=== PATIENT | male | born 1950 | race Caucasian/White ===

== ENCOUNTER 2018-07-27 12:08 | Observation (INO) | payer MEDICARE, OTHER ==
[2018-07-27] MEDS ORDERED: SODIUM CHLORIDE 0.9% 1,000 ML IV STA (13:13)
[2018-07-27] MEDS ORDERED: PANTOPRAZOLE 40 MG/10 ML VIAL IVP STA (13:13)
--- NOTE | 2018-07-27 13:16 | ED ---
General Adult HPI <SwapnilGiuseppe - Last Filed: 07/27/18 15:00> - General Source: family, RN notes reviewed Mode of arrival: ambulatory Limitations: no limitations <Faustino Mcneil - Last Filed: 07/27/18 15:03> - General Chief complaint: GI Bleed Stated complaint: Blood in stool Time Seen by Provider: 07/27/18 13:07 - History of Present Illness Initial comments: Patient 67-year-old male presented to the emergency room today with chief complaint of blood in his stool. Patient does admit that he had an episode of diarrhea last night. States he did not turn the light on its unsure if it was bloody. States this morning at a p.m. he had a bowel movement he wiped she noticed that it was bright red blood. He states he had a second bowel movement at 10 AM. He states it difficult family doctor advised coming here to the emergency room for further evaluation. Patient denies any other complaints or symptoms. He does admit that he is Xarelto and has a history of A. fib. Patient denies any recent fever, chills, shortness of breath, chest pain, back pain, abdominal pain, nausea or vomiting, headaches or visual changes, or any other complaints. (Faustino Mcneil) - Related Data Home Medications Medication Instructions Recorded Confirmed Digoxin [Lanoxin] 250 mcg PO DAILY@199902/17/14 07/27/18 Loratadine [Claritin] 10 mg PO DAILY@199902/17/14 07/27/18 Multivitamin [Men's Multi-Vitamin] 1 tab PO DAILY@199902/17/14 07/27/18 Rivaroxaban [Xarelto] 20 mg PO DAILY@199902/17/14 07/27/18 Tamsulosin [Flomax] 0.8 mg PO DAILY@199902/17/14 07/27/18 Cholecalciferol [Vitamin D3] 5,000 unit PO DAILY@199901/20/17 07/27/18 Krill/Om-3/Dha/Epa/Phospho/Ast 1 cap PO DAILY@199901/20/17 07/27/18 [[place]-3 Krill Oil 300 mg Sfgl] Atenolol [Tenormin] 25 mg PO DAILY@199907/27/18 07/27/18 Finasteride [Proscar] 5 mg PO DAILY@199907/27/18 07/27/18 Allergies Allergy/AdvReac Type Severity Reaction Status Date / Time No Known Allergies Allergy Verified 07/27/18 13:20 Review of Systems ROS Other: All systems not noted in ROS Statement are negative. <Giuseppe Kraft - Last Filed: 07/27/18 15:00> ROS Other: All systems not noted in ROS Statement are negative. <Faustino Mcneil - Last Filed: 07/27/18 15:03> ROS Statement: Those systems with pertinent positive or pertinent negative responses have been documented in the HPI. Past Medical History Past Medical History: Atrial Fibrillation, Hyperlipidemia, Hypertension, Myocardial Infarction ([place]), Osteoarthritis (OA), Prostate Disorder, Skin Disorder, Sleep Apnea/CPAP/BIPAP Additional Past Medical History / Comment(s): uses CPAP, psoriasis, hx. colon polyps Last Myocardial Infarction Date:: 2007 History of Any Multi-Drug Resistant Organisms: None Reported Past Surgical History: Hernia Repair, Tonsillectomy Additional Past Surgical History / Comment(s): colonoscopy Past Anesthesia/Blood Transfusion Reactions: No Reported Reaction Past Psychological History: No Psychological Hx Reported Smoking Status: Former smoker Past Alcohol Use History: None Reported Past Drug Use History: None Reported - Past Family History Mother Family Medical History: Cancer <Faustino Mcneil - Last Filed: 07/27/18 15:03> General Exam <Giuseppe Kraft - Last Filed: 07/27/18 15:00> Limitations: no limitations <McneilFaustino - Last Filed: 07/27/18 15:03> - General Exam Comments Initial Comments: General: The patient is awake and alert, in no distress, and does not appear acutely ill. Eye: Pupils are equal, round and reactive to light. Extra-ocular movements are intact. No nystagmus. There is normal conjunctiva bilaterally. No signs of icterus. Ears, nose, mouth and throat: There are moist mucous membranes and no oral lesions. Neck: The neck is supple, there is no tenderness or JVD. Cardiovascular: There is a regular rate and rhythm. No murmur, rub or gallop is appreciated. Respiratory: Lungs are clear to auscultation, respirations are non-labored, breath sounds are equal. No wheezes, stridor, rales, or rhonchi. Gastrointestinal: Soft, non-distended, non-tender abdomen without masses or organomegaly noted. There is no rebound or guarding present. No CVA tenderness. Musculoskeletal: Normal ROM, no tenderness. Sensation intact. Strength 5/5. Pulses equal bilaterally 2+. Neurological: A&O x 3. CN II-XII intact, There are no obvious motor or sensory deficits. Coordination appears grossly intact. Speech is normal. Skin: Skin is warm and dry and no rashes or lesions are noted. Psychiatric: Cooperative, appropriate mood & affect, normal judgment. : Normal rectal tone. No bright red blood per rectum. Guaiac positive. ( Faustino Mcneil) Vital Signs 07/27/18 07/27/18 12:09 14:05 Temperature 98.2 F Pulse Rate 93 76 Respiratory 18 18 Rate Blood Pressure 126/79 112/71 O2 Sat by Pulse 98 96 Oximetry Medical Decision Making - Lab Data Result diagrams: 07/27/18 13:30 07/27/18 13:30 <Giuseppe Kraft - Last Filed: 07/27/18 15:00> - Lab Data Result diagrams: 07/27/18 13:30 07/27/18 13:30 <Faustino Mcneil - Last Filed: 07/27/18 15:03> - Medical Decision Making Patient reevaluated by myself, Dr. Kraft. Patient resting comfortably in bed. Abdomen soft and nontender. Patient and family updated on results and plan. Case was discussed in detail with Dr. Fitch, who will admit for Dr. gonzalez. He does agree with discontinuing Xarelto and GI consult. (Giuseppe Kraft) Patient reexamined at this time shows no signs of distress. Resting comfortably. Patient's labs been reviewed. Patient's Hemoccult positive here the emergency room. There is no bright red blood per rectum. Patient's vitals are stable. Patient was given dose of Protonix here the emergency room. Patient will be admitted for serial H&H and consult to GI. (Faustino Mcneil) - Lab Data Lab Results 07/27/18 07/27/18 07/27/18 Range/Units 13:30 13:30 13:30 WBC 10.0 (3.8-10.6) k/uL RBC 4.66 (4.30-5.90) m/uL Hgb 14.2 (13.0-17.5) gm/dL Hct 43.8 (39.0-53.0) % MCV 93.9 (80.0-100.0) fL MCH 30.4 (25.0-35.0) pg MCHC 32.4 (31.0-37.0) g/dL RDW 13.6 (11.5-15.5) % Plt Count 225 (150-450) k/uL Neutrophils % 68 % Lymphocytes % 22 % Monocytes % 6 % Eosinophils % 1 % Basophils % 0 % Neutrophils # 6.8 (1.3-7.7) k/uL Lymphocytes # 2.2 (1.0-4.8) k/uL Monocytes # 0.6 (0-1.0) k/uL Eosinophils # 0.1 (0-0.7) k/uL Basophils # 0.0 (0-0.2) k/uL PT 11.0 (9.0-12.0) sec INR 1.1 (<1.2) APTT 37.6 H (22.0-30.0) sec Sodium 141 (137-145) mmol/L Potassium 4.5 (3.5-5.1) mmol/L Chloride 103 (98-107) mmol/L Carbon Dioxide 26 (22-30) mmol/L Anion Gap 12 mmol/L BUN 17 (9-20) mg/dL Creatinine 0.67 (0.66-1.25) mg/dL Est GFR (CKD-EPI)AfAm >90 (>60 ml/min/1.73 sqM) Est GFR (CKD-EPI)NonAf >90 (>60 ml/min/1.73 sqM) Glucose 95 (74-99) mg/dL Calcium 9.1 (8.4-10.2) mg/dL Total Bilirubin 0.6 (0.2-1.3) mg/dL AST 27 (17-59) U/L ALT 21 (21-72) U/L Alkaline Phosphatase 52 (38-126) U/L Troponin I (0.000-0.034) ng/mL Total Protein 7.3 (6.3-8.2) g/dL Albumin 4.1 (3.5-5.0) g/dL 07/27/18 Range/Units 13:30 WBC (3.8-10.6) k/uL RBC (4.30-5.90) m/uL Hgb (13.0-17.5) gm/dL Hct (39.0-53.0) % MCV (80.0-100.0) fL MCH (25.0-35.0) pg MCHC (31.0-37.0) g/dL RDW (11.5-15.5) % Plt Count (150-450) k/uL Neutrophils % % Lymphocytes % % Monocytes % % Eosinophils % % Basophils % % Neutrophils # (1.3-7.7) k/uL Lymphocytes # (1.0-4.8) k/uL Monocytes # (0-1.0) k/uL Eosinophils # (0-0.7) k/uL Basophils # (0-0.2) k/uL PT (9.0-12.0) sec INR (<1.2) APTT (22.0-30.0) sec Sodium (137-145) mmol/L Potassium (3.5-5.1) mmol/L Chloride (98-107) mmol/L Carbon Dioxide (22-30) mmol/L Anion Gap mmol/L BUN (9-20) mg/dL Creatinine (0.66-1.25) mg/dL Est GFR (CKD-EPI)AfAm (>60 ml/min/1.73 sqM) Est GFR (CKD-EPI)NonAf (>60 ml/min/1.73 sqM) Glucose (74-99) mg/dL Calcium (8.4-10.2) mg/dL Total Bilirubin (0.2-1.3) mg/dL AST (17-59) U/L ALT (21-72) U/L Alkaline Phosphatase (38-126) U/L Troponin I <0.012 (0.000-0.034) ng/mL Total Protein (6.3-8.2) g/dL Albumin (3.5-5.0) g/dL Disposition <Giuseppe Kraft - Last Filed: 07/27/18 15:00> Is patient prescribed a controlled substance at d/c from ED?: No Time of Disposition: 15:03 <Faustino Mcneil - Last Filed: 07/27/18 15:03> Clinical Impression: GI bleed, Occult blood positive stool Disposition: ADMITTED IP TO THIS HOSP Condition: Good Referrals: Shruti Kurtz MD [Primary Care Provider] - 1-2 days
[2018-07-27 13:45] LABS: Basophils % (A) 0 %; Eosinophils # (A) 0.1 k/uL (0-0.7); Eosinophils % (A) 1 %; HCT 43.8 % (39.0-53.0); HGB 14.2 gm/dL (13.0-17.5); Lymphocytes # (A) 2.2 k/uL (1.0-4.8); Lymphocytes % (A) 22 %; MCH 30.4 pg (25.0-35.0); MCHC 32.4 g/dL (31.0-37.0); MCV 93.9 fL (80.0-100.0); Monocytes # (A) 0.6 k/uL (0-1.0); Monocytes % (A) 6 %; Neutrophils # (A) 6.8 k/uL (1.3-7.7); Neutrophils % (A) 68 %; Platelet Count 225 k/uL (150-450); RBC 4.66 m/uL (4.30-5.90); RDW 13.6 % (11.5-15.5)
[2018-07-27 13:50] LABS: INR 1.1 (<1.2); Partial Thromboplastin Time 37.6 sec (22.0-30.0)
[2018-07-27 13:56] LABS: ALT 21 U/L (21-72); AST 27 U/L (17-59); Albumin 4.1 g/dL (3.5-5.0); Alkaline Phosphatase 52 U/L (38-126); Anion Gap 12 mmol/L; Blood Urea Nitrogen 17 mg/dL (9-20); Calcium 9.1 mg/dL (8.4-10.2); Carbon Dioxide 26 mmol/L (22-30); Chloride 103 mmol/L (98-107); Glucose 95 mg/dL (74-99); Potassium 4.5 mmol/L (3.5-5.1); Sodium 141 mmol/L (137-145); Total Bilirubin 0.6 mg/dL (0.2-1.3); Total Protein 7.3 g/dL (6.3-8.2)
[2018-07-27] MEDS ORDERED: NALOXONE 0.4 MG/ML 1 ML VIAL IV PRN (15:01)
--- NOTE | 2018-07-27 16:00 | P.HPIM ---
History of Present Illness H&P Date: 07/27/18 Chief Complaint: GI bleed This is a 67-year-old male patient of Dr. montero. Patient presents to the emergency room with complaints of a GI bleed. Patient states that this morning he went to the bathroom and noticed bright red blood with his bowel movement. Patient said he had 2 episodes of this at home. Patient proceeded to PCP where he was sent to the emergency room. Patient is currently on xarelato for atrial fibrillation. Additional medical history includes lipidemia, hypertension, myocardial infarction, osteoarthritis, prostate disorder comes skin disorder and sleep apnea. Patient did have colonoscopy in January 2017 in which showed multiple small polyps. Patient denies any alcohol use. Patient denies any change to diet. Patient denies any nausea vomiting. Patient denies any abdominal pain or cramping. Patient's hemoglobin stable at 14.2. GI services have been consulted. EKG has been ordered due to history of atrial fibrillation along with cardiac monitoring. Patient denies chest pain or shortness of breath. Patient denies any urinary burning or frequency. Review of Systems Please refer to HPI otherwise unremarkable Past Medical History Past Medical History: Atrial Fibrillation, Hyperlipidemia, Hypertension, Myocardial Infarction ([place]), Osteoarthritis ([place]), Prostate Disorder, Skin Disorder, Sleep Apnea/CPAP/BIPAP Additional Past Medical History / Comment(s): uses CPAP, psoriasis, hx. colon polyps Last Myocardial Infarction Date:: 2007 History of Any Multi-Drug Resistant Organisms: None Reported Past Surgical History: Hernia Repair, Tonsillectomy Additional Past Surgical History / Comment(s): colonoscopy Past Anesthesia/Blood Transfusion Reactions: No Reported Reaction Past Psychological History: No Psychological Hx Reported Smoking Status: Former smoker Past Alcohol Use History: None Reported Past Drug Use History: None Reported - Past Family History Mother Family Medical History: Cancer Medications and Allergies Home Medications Medication Instructions Recorded Confirmed Type Digoxin [Lanoxin] 250 mcg PO DAILY@199902/17/14 07/27/18 History Loratadine [Claritin] 10 mg PO DAILY@199902/17/14 07/27/18 History Multivitamin [Men's Multi-Vitamin] 1 tab PO DAILY@199902/17/14 07/27/18 History Rivaroxaban [Xarelto] 20 mg PO DAILY@199902/17/14 07/27/18 History Tamsulosin [Flomax] 0.8 mg PO DAILY@199902/17/14 07/27/18 History Cholecalciferol [Vitamin D3] 5,000 unit PO DAILY@199901/20/17 07/27/18 History Krill/Om-3/Dha/Epa/Phospho/Ast 1 cap PO DAILY@199901/20/17 07/27/18 History [[place]-3 Krill Oil 300 mg Sfgl] Atenolol [Tenormin] 25 mg PO DAILY@199907/27/18 07/27/18 History Finasteride [Proscar] 5 mg PO DAILY@199907/27/18 07/27/18 History Allergies Allergy/AdvReac Type Severity Reaction Status Date / Time No Known Allergies Allergy Verified 07/27/18 13:20 Physical Exam Vitals: Vital Signs Temp Pulse Resp BP Pulse Ox 07/27/18 14:05 76 18 112/71 96 07/27/18 12:09 98.2 F 93 18 126/79 98 Intake and Output 07/27/18 07/27/18 07/27/18 06:59 14:59 22:59 Other: Weight 135.624 kg Head normocephalic Neck supple Lungs clear to auscultation bilaterally no wheezing or crackles Heart regular rate and rhythm S1-S2, no rub or gallop Abdomen is soft nontender nondistended positive bowel sounds no hepatosplenomegaly Extremities no edema Neuro alert and orientated to 3 Results CBC & Chem 7: 07/27/18 13:30 07/27/18 13:30 Labs: Abnormal Lab Results - Last 24 Hours (Table) 07/27/18 Range/Units 13:30 APTT 37.6 H (22.0-30.0) sec Assessment and Plan Assessment: 1. GI bleed. Patient started on Protonix. GI services have been consulted. patient did have colonoscopy in January 2017 showing polyps. 2. History of atrial fibrillation. Patient is on Xarelto. Xarelto currently on hold due to episode GI bleed. EKG and cardiac monitoring has been ordered. Dig level ordered. Home digoxin resumed 3. History of hyperlipidemia 4. History of essential hypertension. Home medications resumed 5. History of osteoarthritis 6. History of myocardial infarction 7. History of prostate disorder 8. History of sleep apnea. Patient does use home CPAP machine DVT prophylaxis SCDs. GI prophylaxis Protonix Time with Patient: Greater than 30 (Greater than 60% of the total time spent in counseling and coordination of care. I performed an examination of the patient and discussed their management with the Nurse Practitioner. I have reviewed the Nurse Practitioner's notes and agree with the documented findings and plan of care)
[2018-07-27] MEDS ORDERED: NON-FORMULARY DRUG (Krill/Om-3/Dha/Epa/Phospho/Ast [Omega-3 Krill Oil 300 Mg Sfgl] 1 CAP) PO SCH (20:00)
[2018-07-27] MEDS: CHOLECALCIFEROL 1,000 UNIT TAB PO SCH (22:10)
[2018-07-27] MEDS: ATENOLOL 25 MG TAB PO SCH (22:10)
[2018-07-27] MEDS: MULTIVITAMINS, THERA 1 EACH TAB PO SCH (22:11)
[2018-07-27] MEDS: DIGOXIN 250 MCG TAB PO SCH (22:11)
[2018-07-27] MEDS: LORATADINE 10 MG TAB PO SCH (22:11)
[2018-07-27] MEDS: TAMSULOSIN 0.4 MG CAP.ER.24H PO SCH (22:11)
[2018-07-27] MEDS: FINASTERIDE 5 MG TAB PO SCH (22:11)
--- NOTE | 2018-07-28 09:41 | P.PN ---
Subjective Progress Note Date: 07/28/18 This is a 67-year-old male patient of Dr. montero. Patient presents to the emergency room with complaints of a GI bleed. Patient states that this morning he went to the bathroom and noticed bright red blood with his bowel movement. Patient said he had 2 episodes of this at home. Patient proceeded to PCP where he was sent to the emergency room. Patient is currently on xarelato for atrial fibrillation. Additional medical history includes lipidemia, hypertension, myocardial infarction, osteoarthritis, prostate disorder comes skin disorder and sleep apnea. Patient did have colonoscopy in January 2017 in which showed multiple small polyps. Patient denies any alcohol use. Patient denies any change to diet. Patient denies any nausea vomiting. Patient denies any abdominal pain or cramping. Patient's hemoglobin stable at 14.2. GI services have been consulted. EKG has been ordered due to history of atrial fibrillation along with cardiac monitoring. Patient denies chest pain or shortness of breath. Patient denies any urinary burning or frequency. On 07/28/2018 patient is currently alert and oriented 3 resting comfortably in bed. Patient denies any further bleeding at this time. Patient has not had a bowel movement since arrival to the emergency room. Patient denies chest pain or shortness of breath. Patient denies nausea vomiting or diarrhea. Patient denies any urinary burning or frequency. Awaiting GI consult Objective - Vital Signs Vital signs: Vital Signs Temp 98.4 F 07/28/18 06:02 Pulse 93 07/28/18 06:02 Resp 18 07/28/18 06:02 BP 118/64 07/28/18 06:02 Pulse Ox 97 07/28/18 06:02 Intake & Output 07/27/18 07/28/18 07/28/18 18:59 06:59 18:59 Weight 135.624 kg Other: Voiding Method Toilet # Voids 1 - Exam Head normocephalic Neck supple Lungs clear to auscultation bilaterally no wheezing or crackles Heart regular rate and rhythm S1-S2, no rub or gallop Abdomen is soft nontender nondistended positive bowel sounds no hepatosplenomegaly Extremities no edema Neuro alert and orientated to 3 - Labs CBC & Chem 7: 07/27/18 13:30 07/27/18 13:30 Labs: Abnormal Lab Results - Last 24 Hours (Table) 07/27/18 Range/Units 13:30 APTT 37.6 H (22.0-30.0) sec Assessment and Plan Assessment: 1. GI bleed. Patient started on Protonix. GI services have been consulted. patient did have colonoscopy in January 2017 showing polyps. 2. History of atrial fibrillation. Patient is on Xarelto. Xarelto currently on hold due to episode GI bleed. EKG and cardiac monitoring has been ordered. Dig level ordered. Home digoxin resumed 3. History of hyperlipidemia 4. History of essential hypertension. Home medications resumed 5. History of osteoarthritis 6. History of myocardial infarction 7. History of prostate disorder 8. History of sleep apnea. Patient does use home CPAP machine DVT prophylaxis SCDs. GI prophylaxis Protonix
[2018-07-28 09:50] LABS: Basophils % (A) 0 %; Eosinophils # (A) 0.2 k/uL (0-0.7); Eosinophils % (A) 2 %; HCT 42.2 % (39.0-53.0); HGB 13.9 gm/dL (13.0-17.5); Lymphocytes # (A) 2.3 k/uL (1.0-4.8); Lymphocytes % (A) 23 %; MCH 31.3 pg (25.0-35.0); MCHC 33.1 g/dL (31.0-37.0); MCV 94.8 fL (80.0-100.0); Monocytes # (A) 0.6 k/uL (0-1.0); Monocytes % (A) 6 %; Neutrophils # (A) 6.6 k/uL (1.3-7.7); Neutrophils % (A) 66 %; Platelet Count 219 k/uL (150-450); RBC 4.45 m/uL (4.30-5.90); RDW 13.7 % (11.5-15.5)
[2018-07-28] MEDS: PANTOPRAZOLE 40 MG/10 ML VIAL IV SCH (09:51)
[2018-07-28 10:08] LABS: ALT 25 U/L (21-72); AST 26 U/L (17-59); Albumin 3.9 g/dL (3.5-5.0); Alkaline Phosphatase 51 U/L (38-126); Anion Gap 12 mmol/L; Blood Urea Nitrogen 13 mg/dL (9-20); Carbon Dioxide 26 mmol/L (22-30); Chloride 102 mmol/L (98-107); Glucose 114 mg/dL (74-99); Potassium 4.4 mmol/L (3.5-5.1); Sodium 140 mmol/L (137-145); Total Bilirubin 0.6 mg/dL (0.2-1.3); Total Protein 6.8 g/dL (6.3-8.2)
--- NOTE | 2018-07-28 12:57 | P.CONS ---
History of Present Illness - Reason for Consult Consult date: 07/28/18 Rectal bleeding Requesting physician: Shavon Fitch - Chief Complaint Rectal bleeding - History of Present Illness 67-year-old gentleman patient of Dr. Kurtz with a past medical history of morbid obesity, atrial fibrillation maintained on Xarelto, hyperlipidemia, hypertension, [place] and sleep apnea. Patient presents with bright red blood per rectum 1 day. He had 2 episodes yesterday relatively painless. Patient states 2 weeks ago he had an episode of severe constipation took over-the- counter laxatives with improvement. He has no history of GI bleeds. Colonoscopy January 2017 reported no evidence of diverticulosis. Cecal polypectomy 5 and hepatic flexure polypectomy 1 biopsies consistent with fragments of adenoma. Patient past a bowel movement this morning that was slightly blood-tinged improved from yesterday. Admission 14.2 presently 13.9. INR 1.1. BUN 17. Creatinine 0.6. FOBT positive. Review of Systems Constitutional: Denies fever, chills, sweats, weight gain, or loss. HEENT: Negative for migraines, blurred vision or loss, earaches, drainage, tinnitus, oral mucosal lesions, dysphagia, or odynophagia. Cardiac: Negative for chest pain, arrhythmias, or palpitation. Respiratory: Negative for shortness of breath, hemoptysis, cough, or sputum production. Gastrointestinal: See HPI for pertinent findings. Genitourinary: Negative for hematuria, urgency, frequency, polyuria, dysuria, or penile discharge. Musculoskeletal: Negative for muscle aches, swelling, arthritis, and arthralgias. Neurologic: Negative for stroke or TIA. Endocrine: Negative for thyroid problems. Skin: Negative for rash or itching. Psychiatric: Negative history for depression and anxiety Past Medical History Past Medical History: Atrial Fibrillation, Hyperlipidemia, Hypertension, Myocardial Infarction ([place]), Osteoarthritis ([place]), Prostate Disorder, Skin Disorder, Sleep Apnea/CPAP/BIPAP Additional Past Medical History / Comment(s): uses CPAP, psoriasis, hx. colon polyps-benign, past uti-ecoli 2014 Last Myocardial Infarction Date:: 2007 History of Any Multi-Drug Resistant Organisms: None Reported Past Surgical History: Heart Catheterization, Hernia Repair, Tonsillectomy Additional Past Surgical History / Comment(s): colonoscopy/polypectomy Past Anesthesia/Blood Transfusion Reactions: No Reported Reaction Smoking Status: Former smoker - Past Family History Mother Family Medical History: Cancer Additional Family Medical History / Comment(s): "female cancer" Father Family Medical History: Cancer Additional Family Medical History / Comment(s): brain tumor and lung cancer Medications and Allergies Home Medications Medication Instructions Recorded Confirmed Type Digoxin [Lanoxin] 250 mcg PO DAILY@199902/17/14 07/27/18 History Loratadine [Claritin] 10 mg PO DAILY@199902/17/14 07/27/18 History Multivitamin [Men's Multi-Vitamin] 1 tab PO DAILY@199902/17/14 07/27/18 History Rivaroxaban [Xarelto] 20 mg PO DAILY@199902/17/14 07/27/18 History Tamsulosin [Flomax] 0.8 mg PO DAILY@199902/17/14 07/27/18 History Cholecalciferol [Vitamin D3] 5,000 unit PO DAILY@199901/20/17 07/27/18 History Krill/Om-3/Dha/Epa/Phospho/Ast 1 cap PO DAILY@199901/20/17 07/27/18 History [[place]-3 Krill Oil 300 mg Sfgl] Atenolol [Tenormin] 25 mg PO DAILY@199907/27/18 07/27/18 History Finasteride [Proscar] 5 mg PO DAILY@199907/27/18 07/27/18 History Allergies Allergy/AdvReac Type Severity Reaction Status Date / Time No Known Allergies Allergy Verified 07/27/18 13:20 Physical Exam Vitals: Vital Signs Temp Pulse Pulse Resp BP BP Pulse Ox 07/28/18 09:57 93 18 07/28/18 06:02 98.4 F 93 18 118/64 97 07/27/18 23:00 98.1 F 97 18 134/83 96 07/27/18 17:30 97.0 F L 85 18 139/76 97 07/27/18 17:06 98.2 F 82 18 131/85 100 07/27/18 16:38 82 18 131/85 100 07/27/18 14:05 76 18 112/71 96 Intake and Output 07/27/18 07/28/18 07/28/18 22:59 06:59 14:59 Intake Total 350 Balance 350 Intake: Oral 350 Other: Voiding Method Toilet Toilet # Voids 1 1 General appearance: The patient is alert, oriented, in no acute distress. HET: Head is normocephalic and atraumatic. Pupils are equal and reactive. Oropharynx is clear without lesions. Neck: Supple without lymphadenopathy. Trachea midline. Heart: S1 S2. Regular rate and rhythm. Lungs: No crackles or wheezes are heard. Abdomen: Soft, nontender, nondistended with bowel sounds. No peritoneal signs. No palpable organomegaly or masses. Extremities: Normal skin color and turgor. No cyanosis, rash, ulceration, clubbing, or edema. Radial and pedal pulses are 2/4 bilaterally. Neurological: No focal deficits. Strength and sensation are grossly intact. Results CBC & Chem 7: 07/28/18 09:24 07/28/18 09:24 Labs: Abnormal Lab Results - Last 24 Hours (Table) 07/27/18 07/28/18 Range/Units 13:30 09:24 APTT 37.6 H (22.0-30.0) sec Glucose 114 H (74-99) mg/dL Assessment and Plan (1) Rectal bleeding Narrative/Plan: 67-year-old male admitted with a one-day history of painless bloody diarrhea with episode of constipation less than 2 weeks ago underlying history of atrial fibrillation maintained on anticoagulation. Possible focal area of colitis possible proctitis stercoral ulcer, anal fissure also within the differential with reported history of profound constipation less than 2 weeks ago exacerbated by anti-coagulation. Colonoscopy January 2017 cecal polypectomy 5, transverse polypectomy 1 biopsies consistent with adenoma. Rectal bleeding appears to be improving hemoglobin stable at 13.9. Current Visit: Yes Status: Acute Code(s): K62.5 - HEMORRHAGE OF ANUS AND RECTUM SNOMED Code(s): 68678833 (2) Atrial fibrillation Current Visit: Yes Status: Acute Code(s): I48.91 - UNSPECIFIED ATRIAL FIBRILLATION SNOMED Code(s): 57130179 (3) Morbid obesity with BMI of 40.0-44.9, adult Current Visit: Yes Status: Chronic Code(s): E66.01 - MORBID (SEVERE) OBESITY DUE TO EXCESS CALORIES; Z68.41 - BODY MASS INDEX (BMI) 40.0-44.9, ADULT SNOMED Code(s): 788811485 Plan: 1. Advise liquid diet. CBC monitoring and observe. Inpatient endoscopic exams not planned at this time but contingent on clinical course. Continue to hold anticoagulation. We'll follow closely with you. Thank you for this kind referral and the opportunity to participate in the care of your patient. This consultation was discussed with Dr. Flores. The impression and plan of care have been directed as dictated.
[2018-07-28] MEDS: ATENOLOL 25 MG TAB PO SCH (20:05)
[2018-07-28] MEDS: FINASTERIDE 5 MG TAB PO SCH (20:06)
[2018-07-28] MEDS: CHOLECALCIFEROL 1,000 UNIT TAB PO SCH (20:06)
[2018-07-28] MEDS: LORATADINE 10 MG TAB PO SCH (20:06)
[2018-07-28] MEDS: MULTIVITAMINS, THERA 1 EACH TAB PO SCH (20:06)
[2018-07-28] MEDS: DIGOXIN 250 MCG TAB PO SCH (20:06)
[2018-07-28] MEDS: TAMSULOSIN 0.4 MG CAP.ER.24H PO SCH (20:06)
[2018-07-28 23:10] VITALS: RESP 18
[2018-07-29 05:58] VITALS: BP 115/81; PULSE 91; TEMP 97.6
[2018-07-29] MEDS: PANTOPRAZOLE 40 MG/10 ML VIAL IV SCH (08:21)
--- NOTE | 2018-07-29 10:27 | P.PN ---
Subjective Progress Note Date: 07/29/18 Principal diagnosis: Rectal bleeding Feels well. Denies abdominal pain. Tolerating full liquids. CBC pending. BM last night described as soft with older dark appearing blood. Objective - Vital Signs Vital signs: Vital Signs Temp 97.6 F 07/29/18 05:57 Pulse 91 07/29/18 05:57 Resp 18 07/29/18 05:57 BP 115/81 07/29/18 05:57 Pulse Ox 95 07/29/18 05:57 Intake & Output 07/28/18 07/29/18 07/29/18 18:59 06:59 18:59 Intake Total 1150 Balance 1150 Weight 135.624 kg Intake: Oral 1150 Other: Voiding Method Toilet Toilet # Voids 2 1 # Bowel Movements 1 - Exam General appearance: The patient is alert, oriented, in no acute distress. HET: Head is normocephalic and atraumatic. Pupils are equal and reactive. Oropharynx is clear without lesions. Neck: Supple without lymphadenopathy. Trachea midline. Heart: S1 S2. Regular rate and rhythm. Lungs: No crackles or wheezes are heard. Abdomen: Soft, nontender, nondistended with bowel sounds. No peritoneal signs. No palpable organomegaly or masses. Extremities: Normal skin color and turgor. No cyanosis, rash, ulceration, clubbing, or edema. Radial and pedal pulses are 2/4 bilaterally. Neurological: No focal deficits. Strength and sensation are grossly intact. - Labs CBC & Chem 7: 07/28/18 09:24 07/28/18 09:24 Assessment and Plan (1) Rectal bleeding Narrative/Plan: 67-year-old male admitted with a one-day history of painless bloody diarrhea with episode of constipation less than 2 weeks ago underlying history of atrial fibrillation maintained on anticoagulation. Possible focal area of colitis possible proctitis stercoral ulcer, anal fissure also within the differential with reported history of profound constipation less than 2 weeks ago exacerbated by anti-coagulation. Colonoscopy January 2017 cecal polypectomy 5, transverse polypectomy 1 biopsies consistent with adenoma. Rectal bleeding appears to be improving hemoglobin stable at 13.9. Current Visit: Yes Status: Acute Code(s): K62.5 - HEMORRHAGE OF ANUS AND RECTUM SNOMED Code(s): 88193833 (2) Atrial fibrillation Current Visit: Yes Status: Acute Code(s): I48.91 - UNSPECIFIED ATRIAL FIBRILLATION SNOMED Code(s): 36739252 (3) Morbid obesity with BMI of 40.0-44.9, adult Current Visit: Yes Status: Chronic Code(s): E66.01 - MORBID (SEVERE) OBESITY DUE TO EXCESS CALORIES; Z68.41 - BODY MASS INDEX (BMI) 40.0-44.9, ADULT SNOMED Code(s): 375942822 Plan: 1. Low residue diet. Daily stool softeners to avoid constipation. If CBC is stable agreeable for discharge today return to office in 10 days. Inpatient endoscopic exams not planned at this time. Agreeable to resume anticoagulation per medicine's discretion. Assessment and plan a care discussed with Dr. Flores
[2018-07-29 11:54] LABS: Basophils % (A) 0 %; Eosinophils # (A) 0.1 k/uL (0-0.7); Eosinophils % (A) 1 %; HCT 41.2 % (39.0-53.0); HGB 13.5 gm/dL (13.0-17.5); Lymphocytes # (A) 1.8 k/uL (1.0-4.8); Lymphocytes % (A) 22 %; MCHC 32.8 g/dL (31.0-37.0); MCV 94.5 fL (80.0-100.0); Mean Platelet Volume 7.5; Monocytes # (A) 0.7 k/uL (0-1.0); Monocytes % (A) 8 %; Neutrophils # (A) 5.3 k/uL (1.3-7.7); Neutrophils % (A) 65 %; Platelet Count 202 k/uL (150-450); RBC 4.36 m/uL (4.30-5.90); RDW 13.8 % (11.5-15.5); WBC 8.2 k/uL (3.8-10.6)
[2018-07-29 12:05] LABS: ALT 23 U/L (21-72); AST 25 U/L (17-59); Albumin 3.8 g/dL (3.5-5.0); Alkaline Phosphatase 46 U/L (38-126); Anion Gap 10 mmol/L; Blood Urea Nitrogen 12 mg/dL (9-20); Calcium 9.2 mg/dL (8.4-10.2); Carbon Dioxide 28 mmol/L (22-30); Chloride 102 mmol/L (98-107); Glucose 103 mg/dL (74-99); Potassium 4.3 mmol/L (3.5-5.1); Sodium 140 mmol/L (137-145); Total Bilirubin 0.5 mg/dL (0.2-1.3); Total Protein 6.9 g/dL (6.3-8.2)
--- NOTE | 2018-07-29 13:35 | P.DS ---
Providers Date of admission: 07/27/18 15:01 Expected date of discharge: 07/29/18 Attending physician: Shavon Fitch Consults: 07/27/18 15:01 Consult Physician ONCE Consulting Provider: Codie Flores Consult Reason/Comments: gi bleed Do you want consulting provider notified?: Yes Primary care physician: Shruti Kurtz Hospital Course: Discharge diagnosis 1. GI bleed. Patient started on Protonix. GI services have been consulted. patient did have colonoscopy in January 2017 showing polyps. Patient did have a BM last night described as soft with old dark appearing Blood. CBC remained stable. Per his GI service is patient to be discharged home and follow up outpatient in 10 days. Discussed case with Catina Singh per GI services okay for patient to resume xarelto tomorrow. If patient continues to have an episode of bleeding after restarting blood thinner patient most likely have to undergo colonoscopy or EGD scopes 2. History of atrial fibrillation. Patient is on Xarelto. Xarelto currently on hold due to episode GI bleed. EKG and cardiac monitoring has been ordered. Dig level ordered. Home digoxin resumed. okay to resume Xarelto per GI services 3. History of hyperlipidemia 4. History of essential hypertension. Home medications resumed 5. History of osteoarthritis 6. History of myocardial infarction 7. History of prostate disorder 8. History of sleep apnea. Patient does use home CPAP machine Hospital Course This is a 67-year-old male patient of Dr. kurtz. Patient presents to the emergency room with complaints of a GI bleed. Patient states that this morning he went to the bathroom and noticed bright red blood with his bowel movement. Patient said he had 2 episodes of this at home. Patient proceeded to PCP where he was sent to the emergency room. Patient is currently on xarelato for atrial fibrillation. Additional medical history includes lipidemia, hypertension, myocardial infarction, osteoarthritis, prostate disorder comes skin disorder and sleep apnea. Patient did have colonoscopy in January 2017 in which showed multiple small polyps. Patient denies any alcohol use. Patient denies any change to diet. Patient denies any nausea vomiting. Patient denies any abdominal pain or cramping. Patient's hemoglobin stable at 14.2. GI services have been consulted. EKG has been ordered due to history of atrial fibrillation along with cardiac monitoring. Patient denies chest pain or shortness of breath. Patient denies any urinary burning or frequency. On 07/28/2018 patient is currently alert and oriented 3 resting comfortably in bed. Patient denies any further bleeding at this time. Patient has not had a bowel movement since arrival to the emergency room. Patient denies chest pain or shortness of breath. Patient denies nausea vomiting or diarrhea. Patient denies any urinary burning or frequency. Awaiting GI consult On 08/08/2018 patient is currently alert and oriented 3. Patient did state he had BM last night that did have some dark old appearing blood. Hemoglobin remained stable at 13.5. Discussed case with Catina Singh per GI services okay to resume Xarelto starting tomorrow. CBC has been ordered for 2 days. Patient to follow-up closely with PCP and GI services I performed an examination of the patient and discussed their management with the Nurse Practitioner. I have reviewed the Nurse Practitioner's notes and agree with the documented findings and plan of care Patient Condition at Discharge: Stable Plan - Discharge Summary Discharge Rx Participant: No New Discharge Prescriptions: Continue Rivaroxaban [Xarelto] 20 mg PO DAILY@1999 Multivitamin [Men's Multi-Vitamin] 1 tab PO DAILY@1999 Digoxin [Lanoxin] 250 mcg PO DAILY@1999 Tamsulosin [Flomax] 0.8 mg PO DAILY@1999 Loratadine [Claritin] 10 mg PO DAILY@1999 Cholecalciferol [Vitamin D3] 5,000 unit PO DAILY@1999 Krill/Om-3/Dha/Epa/Phospho/Ast [Sylvania-3 Krill Oil 300 mg Sfgl] 1 cap PO DAILY @1999 Atenolol [Tenormin] 25 mg PO DAILY@1999 Finasteride [Proscar] 5 mg PO DAILY@1999 Discharge Medication List Digoxin [Lanoxin] 250 mcg PO DAILY@199902/17/14 [History] Loratadine [Claritin] 10 mg PO DAILY@199902/17/14 [History] Multivitamin [Men's Multi-Vitamin] 1 tab PO DAILY@199902/17/14 [History] Rivaroxaban [Xarelto] 20 mg PO DAILY@199902/17/14 [History] Tamsulosin [Flomax] 0.8 mg PO DAILY@199902/17/14 [History] Cholecalciferol [Vitamin D3] 5,000 unit PO DAILY@199901/20/17 [History] Krill/Om-3/Dha/Epa/Phospho/Ast [Sylvania-3 Krill Oil 300 mg Sfgl] 1 cap PO DAILY@ 199901/20/17 [History] Atenolol [Tenormin] 25 mg PO DAILY@199907/27/18 [History] Finasteride [Proscar] 5 mg PO DAILY@199907/27/18 [History] Follow up Appointment(s)/Referral(s): Foster Spence MD [STAFF PHYSICIAN] - 08/10/18 2:45 pm Shruti Kurtz MD [Primary Care Provider] - 1-2 days Ambulatory/Diagnostic Orders: Complete Blood Count w/diff [LAB.AMB] Time Frame: 2 Days, Location: None Selected Patient Instructions/Handouts: Gastrointestinal Bleeding (DC), Rectal Bleeding (DC) Activity/Diet/Wound Care/Special Instructions: diet low residue Activity as tolerated Discharge Disposition: HOME SELF-CARE
== END 2018-07-29 14:02 | disposition home or self-care (01) ==
LOC: EC 12:08 → 4MS4W 15:01
PROVIDERS: ADMIT Internal Medicine; ATTEND Internal Medicine
DX: K92.2 Gastrointestinal hemorrhage, unspecified (principal); I48.91 Unspecified atrial fibrillation; Z79.01 Long term (current) use of anticoagulants; E78.5 Hyperlipidemia, unspecified; I10 Essential (primary) hypertension; M19.90 Unspecified osteoarthritis, unspecified site; I25.2 Old myocardial infarction; G47.30 Sleep apnea, unspecified; Z99.89 Dependence on other enabling machines and devices; N42.9 Disorder of prostate, unspecified; Z86.010 Personal history of colon polyps; K92.1 Melena; R19.7 Diarrhea, unspecified; Z87.891 Personal history of nicotine dependence; Z87.440 Personal history of urinary (tract) infections; Z79.899 Other long term (current) drug therapy; E66.01 Morbid (severe) obesity due to excess calories; Z68.41 Body mass index [BMI] 40.0-44.9, adult; Z80.1 Family history of malignant neoplasm of trachea, bronchus and lung; Z80.8 Family history of malignant neoplasm of other organs or systems
CPT/HCPCS: 96361 ×7; 96374 ×2; 99285; 96376 ×2; 36415; 93005; 80053 ×3; 80162; 84484; 85025 ×3; 85610; 85730; 82272; G0378 ×3; S0138 ×2; C9113 ×3

== ENCOUNTER 2020-07-08 03:10 | Inpatient (IN) | payer MEDICARE, OTHER ==
--- NOTE | 2020-07-08 03:21 | ED ---
Recheck HPI - General Chief Complaint: Recheck/Abnormal Lab/Rx Stated Complaint: elevated trop Time Seen by Provider: 07/08/20 03:16 Source: patient, EMS, RN notes reviewed, old records reviewed Mode of arrival: EMS Limitations: no limitations - History of Present Illness Initial Comments: This is a 69-year-old male who is accepted in transfer for evaluation regarding elevated white blood cell count, elevated troponin and a trending increasing elevated troponin, patient currently without significant complaint he does admit to left lower extremity pain MD Complaint: other (Patient transferred for evaluation regarding leukocytosis as well as trending troponin) -: days(s) Returns Today for: Called Because of Abnormal Lab/Test, persistent/worsening pain related to initial visit Symptoms Since Prior Visit: worsening swelling, worsening redness Context: planned re-check, called for abnormal lab result Associated Symptoms: fever, chills - Related Data Home Medications Medication Instructions Recorded Confirmed Digoxin [Lanoxin] 250 mcg PO DAILY@199902/17/14 07/27/18 Loratadine [Claritin] 10 mg PO DAILY@199902/17/14 07/27/18 Multivitamin [Men's Multi-Vitamin] 1 tab PO DAILY@199902/17/14 07/27/18 Rivaroxaban [Xarelto] 20 mg PO DAILY@199902/17/14 07/27/18 Tamsulosin [Flomax] 0.8 mg PO DAILY@199902/17/14 07/27/18 Cholecalciferol [Vitamin D3 (25 5,000 unit PO DAILY@199901/20/17 07/27/18 Mcg = 1000 Iu)] Krill/Om-3/Dha/Epa/Phospho/Ast 1 cap PO DAILY@199901/20/17 07/27/18 [Foley-3 Krill Oil 300 mg Sfgl] Finasteride [Proscar] 5 mg PO DAILY@199907/27/18 07/27/18 atenoloL [Tenormin] 25 mg PO DAILY@199907/27/18 07/27/18 Allergies Allergy/AdvReac Type Severity Reaction Status Date / Time No Known Allergies Allergy Verified 07/08/20 03:19 Review of Systems ROS Statement: Those systems with pertinent positive or pertinent negative responses have been documented in the HPI. ROS Other: All systems not noted in ROS Statement are negative. Past Medical History Past Medical History: Atrial Fibrillation, Hyperlipidemia, Hypertension, Myocardial Infarction ([place]), Osteoarthritis (OA), Prostate Disorder, Skin Disorder, Sleep Apnea/CPAP/BIPAP Additional Past Medical History / Comment(s): uses CPAP, psoriasis, hx. colon polyps-benign, past uti-ecoli 2014 Last Myocardial Infarction Date:: 2007 History of Any Multi-Drug Resistant Organisms: None Reported Past Surgical History: Heart Catheterization, Hernia Repair, Tonsillectomy Additional Past Surgical History / Comment(s): colonoscopy/polypectomy Past Anesthesia/Blood Transfusion Reactions: No Reported Reaction Past Psychological History: No Psychological Hx Reported Smoking Status: Former smoker Past Alcohol Use History: Occasional Past Drug Use History: None Reported - Past Family History Mother Family Medical History: Cancer Additional Family Medical History / Comment(s): "female cancer" Father Family Medical History: Cancer Additional Family Medical History / Comment(s): brain tumor and lung cancer General Exam Limitations: no limitations General appearance: alert, in no apparent distress Head exam: Present: atraumatic, normocephalic, normal inspection Eye exam: Present: normal appearance, PERRL, EOMI. Absent: scleral icterus, conjunctival injection, periorbital swelling ENT exam: Present: normal exam, mucous membranes moist Neck exam: Present: normal inspection. Absent: tenderness, meningismus, lymphadenopathy Respiratory exam: Present: normal lung sounds bilaterally. Absent: respiratory distress, wheezes, rales, rhonchi, stridor Cardiovascular Exam: Present: regular rate, normal rhythm, normal heart sounds. Absent: systolic murmur, diastolic murmur, rubs, gallop, clicks GI/Abdominal exam: Present: soft, normal bowel sounds. Absent: distended, tenderness, guarding, rebound, rigid Extremities exam: Present: normal inspection, full ROM, normal capillary refill. Absent: tenderness, pedal edema, joint swelling, calf tenderness Back exam: Present: normal inspection Neurological exam: Present: alert, oriented X3, CN II-XII intact Psychiatric exam: Present: normal affect, normal mood Skin exam: Present: warm, dry, intact, normal color. Absent: rash Course Vital Signs 07/08/20 03:12 Temperature 99.2 F Pulse Rate 102 H Respiratory 221 H Rate Blood Pressure 118/71 O2 Sat by Pulse 99 Oximetry Medical Decision Making - Medical Decision Making 69 male DF for evaluation patient has feelings of weakness, patient does have significant cellulitis of left lower extremity and fever will admit for treatment infection rule out coronavirus and continue to trend troponin Disposition Clinical Impression: Chest pain, Leukocytosis, Cellulitis, Left leg cellulitis Disposition: ADMITTED IP TO THIS HOSP Condition: Fair Is patient prescribed a controlled substance at d/c from ED?: No Referrals: Shruti Kurtz MD [Primary Care Provider] - 1-2 days
[2020-07-08] MEDS ORDERED: SODIUM CHLORIDE 0.9% 1,000 ML IV STA (03:37)
[2020-07-08] MEDS ORDERED: NITROGLYCERIN SL TABS 0.4 MG TAB SUBLINGUAL PRN (03:38)
[2020-07-08] MEDS ORDERED: IPRATROPIUM-ALBUTEROL 3 ML NEB INHALATION STA (03:50)
[2020-07-08] MEDS: SODIUM CHLORIDE 0.9% 1,000 ML IV SCH (04:23)
[2020-07-08] MEDS: IPRATROPIUM-ALBUTEROL 3 ML NEB INHALATION SCH ×6 (07:40→22:18)
[2020-07-08] MEDS: atenoloL 25 MG TAB PO SCH (09:30)
[2020-07-08 09:40] LABS: Cholesterol 138 mg/dL (<200); HDL Cholesterol 28 mg/dL (40-60); LDL Cholesterol,Calculated 87 mg/dL (0-99); Triglycerides 113 mg/dL (<150)
--- NOTE | 2020-07-08 10:00 | XR ---
EXAMINATION TYPE: XR chest 2V DATE OF EXAM: 07/08/2020 COMPARISON: Chest x-ray August 27, 2010. HISTORY: Shortness of breath. TECHNIQUE: Frontal and lateral views of the chest are obtained. FINDINGS: There is no suspicious focal air space opacity, pleural effusion, or pneumothorax seen. The cardiac silhouette size is mild ly enlarged. Suspect mild central vascular congestion with increased central markings. Multilevel sp urring in the thoracic spine is present. IMPRESSION: Correlate for CHF exacerbation as there is mild cardiomegaly with suspected mild central vascular congestion.
--- NOTE | 2020-07-08 12:01 | P.CRDCN ---
History of Present Illness History of present illness: HISTORY OF PRESENTING ILLNESS This is a pleasant 69-year-old male past medical history significant for chronic persistent atrial fibrillation on long-term anticoagulation, hypertension, dyslipidemia, former nicotine dependence, obstructive sleep apnea and morbid obesity. He follows in the office with Dr Cai. We have been asked to see in consultation for troponin elevation. He initially presented to [facility] secondary to left lower extremity redness and swelling. He was found to have significant leukocytosis and was diagnosed with cellulitis. He was transferred here for further evaluation. Troponin level obtained there was 0.06. 2 additional values were obtained here that was 0.07 and 0.052. The patient is seen and examined resting comfortably in no acute distress. He has no symptoms of chest discomfort or shortness of breath. He denies prior history of coronary artery disease. He states he did undergo cardiac catheterization with his primary copy holder at some point in the previous few years and according to the patient and was normal. DIAGNOSTICS EKG reveals atrial fibrillation with heart rate of 110. Chest xray mild central vascular congestion. Laboratory reviewed, white count 20, hemoglobin 13.5, potassium 3.8, creatinine 0.8, magnesium 1.7 and Propulsid on 0.92. Current cardiac medications include digoxin 250 g daily, Xarelto 20 mg daily and atenolol 25 mg daily. REVIEW OF SYSTEMS At the time of my exam: CONSTITUTIONAL: Denies fever or chills. CARDIOVASCULAR: Denies chest pain, shortness of breath, orthopnea, PND or palpitations. RESPIRATORY: Denies cough. GASTROINTESTINAL: Denies abdominal pain, diarrhea, constipation, nausea or vomiting. MUSCULOSKELETAL: Denies myalgias. NEUROLOGIC: Denies numbness, tingling or weakness. ENDOCRINE: Denies fatigue, weight change, polydipsia or polyurina. GENITOURINARY: Denies burning, hematuria or urgency with micturation. HEMATOLOGIC: Denies history of anemia or bleeding. PHYSICAL EXAMINATION Blood pressure 128/62 heart rate 107 afebrile and maintaining oxygen saturation on room air. CONSTITUTIONAL: No apparent distress. HEENT: Head is normocephalic. Pupils are equal, round. Sclerae anicteric. Mucous membranes of the mouth are moist. No JVD. No carotid bruit. CHEST EXAMINATION: Expiratory wheezes, no rales or rhonchi. No chest wall tenderness is noted on palpation or with deep breathing. HEART EXAMINATION: Irregular rate and rhythm. S1, S2 heard. No murmurs, gallops or rub. ABDOMEN: Soft, nontender. Positive bowel sounds. EXTREMITIES: 2+ peripheral pulses, right lower extremity erythema and 1+ pitting edema, no edema or redness on the right and no calf tenderness. NEUROLOGIC EXAMINATION: Patient is awake, alert and oriented x3. ASSESSMENT Right lower extremity swelling and redness, suspect cellulitis Troponin elevation, flat not indicative of an acute coronary event. The patient has no symptoms suggestive of angina. Chronic persistent atrial fibrillation with varying ventricular rates Acute congestive heart failure, no previous echo. Will update tomorrow. Hypertension Dyslipidemia Obstructive sleep apnea Morbid obesity, BMI 40 PLAN Troponin leak is flat and not indicative of an acute event. The patient also has no symptoms of angina. On arrival to [facility] he was in afib RVR heart rate in the 130's. This could be the cause for the troponin elevation. Obtain 2-D echocardiogram and Doppler study to assess cardiac structure and func tion. Check d-dimer and NT proBNP. Initiate lasix 40 mg IV BID. Resume atenolol give first dose now. Thank you kindly for this consultation. Nurse Practitioner note has been reviewed, I agree with a documented findings and plan of care. Patient was seen and examined. Past Medical History Past Medical History: Atrial Fibrillation, Hyperlipidemia, Hypertension, Myocardial Infarction ([place]), Osteoarthritis (OA), Prostate Disorder, Skin Disorder, Sleep Apnea/CPAP/BIPAP Additional Past Medical History / Comment(s): uses CPAP, psoriasis, hx. colon polyps-benign, past uti-ecoli 2014 Last Myocardial Infarction Date:: 2007 History of Any Multi-Drug Resistant Organisms: None Reported Past Surgical History: Heart Catheterization, Hernia Repair, Tonsillectomy Additional Past Surgical History / Comment(s): colonoscopy/polypectomy Past Anesthesia/Blood Transfusion Reactions: No Reported Reaction Past Psychological History: No Psychological Hx Reported Smoking Status: Former smoker Past Alcohol Use History: Occasional Additional Past Alcohol Use History / Comment(s): started smoking age 16-smoked cigarretees from [age] age 20 then took up cigars and chewing. [id number]. no alcohol now Past Drug Use History: None Reported - Past Family History Mother Family Medical History: Cancer Additional Family Medical History / Comment(s): "female cancer" Father Family Medical History: Cancer Additional Family Medical History / Comment(s): brain tumor and lung cancer Medications and Allergies Home Medications Medication Instructions Recorded Confirmed Type Digoxin [Lanoxin] 250 mcg PO DAILY@199902/17/14 07/08/20 History Multivitamin [Men's Multi-Vitamin] 1 tab PO DAILY@199902/17/14 07/08/20 History Rivaroxaban [Xarelto] 20 mg PO DAILY@199902/17/14 07/08/20 History Tamsulosin [Flomax] 0.8 mg PO DAILY@199902/17/14 07/08/20 History Finasteride [Proscar] 5 mg PO DAILY@199907/27/18 07/08/20 History atenoloL [Tenormin] 25 mg PO DAILY@199907/27/18 07/08/20 History Allergies Allergy/AdvReac Type Severity Reaction Status Date / Time No Known Allergies Allergy Verified 07/08/20 08:47 Physical Exam Vitals: Vital Signs Temp Pulse Pulse Resp BP BP Pulse Ox 07/08/20 08:00 98.5 F 107 H 18 128/62 97 07/08/20 07:50 80 07/08/20 07:40 80 07/08/20 05:09 97.5 F L 98 20 117/85 98 07/08/20 04:24 99.3 F 99 22 112/74 98 07/08/20 03:12 99.2 F 102 H 221 H 118/71 99 Intake and Output 07/07/20 07/08/20 07/08/20 22:59 06:59 14:59 Intake Total 240 Balance 240 Intake: Oral 240 Other: # Voids 1 1 Weight 136.078 kg Results Cardiac Enzymes 07/08/20 07/08/20 Range/Units 05:27 08:52 Troponin I 0.070 H* 0.052 H* (0.000-0.034) ng/mL Lipids 07/08/20 Range/Units 08:52 Triglycerides 113 (<150) mg/dL Cholesterol 138 (<200) mg/dL HDL Cholesterol 28 L (40-60) mg/dL Current Medications Generic Name Dose Route Start Last Admin Trade Name Freq PRN Reason Stop Dose Admin Albuterol/Ipratropium 3 ml 07/08/20 04:00 07/08/20 07:40 Ipratropium-Albuterol 3 Ml Neb INHALATION 3 ml RT-Q4H [facility] Administration Aspirin 81 mg 07/09/20 09:00 Aspirin 81 Mg PO DAILY [facility] Atenolol 25 mg 07/08/20 09:00 07/08/20 09:30 Atenolol 25 Mg Tab PO 25 mg DAILY OBINNA Administration Digoxin 250 mcg 07/08/20 20:00 Digoxin 250 Mcg Tab PO DAILY@1999 [facility] Finasteride 5 mg 07/08/20 20:00 Finasteride 5 Mg Tab PO DAILY@1999 [facility] Sodium Chloride 1,000 mls @ 130 mls/hr 07/08/20 03:37 07/08/20 04:23 Saline 0.9% IV 07/08/20 11:18 Not Given .Q7H42M STA Ceftriaxone Sodium 1 gm/ 50 mls @ 100 mls/hr 07/09/20 06:00 Sodium Chloride IVPB Q12HR [facility] Sodium Chloride 1,000 mls @ 20 mls/hr 07/08/20 03:45 07/08/20 04:23 Saline 0.9% IV 20 mls/hr .Q24H OBINNA Administration Multivitamins 1 each 07/08/20 20:00 Multivitamins, Thera 1 Each Tab PO DAILY@1999 [facility] Nitroglycerin 0.4 mg 07/08/20 03:38 Nitroglycerin Sl Tabs 0.4 Mg Tab SUBLINGUAL Q5M PRN Chest Pain Rivaroxaban 20 mg 07/08/20 20:00 Rivaroxaban 20 Mg Tab PO DAILY@1999 [facility] Tamsulosin HCl 0.8 mg 07/08/20 20:00 Tamsulosin 0.4 Mg Cap.Er.24h PO DAILY@1999 [facility] Intake and Output 07/07/20 07/08/20 07/08/20 22:59 06:59 14:59 Intake Total 240 Balance 240 Intake: Oral 240 Other: # Voids 1 1 Weight 136.078 kg
[2020-07-08] MEDS: FUROSEMIDE 10 MG/ML 4 ML VIAL IV SCH ×2 (12:17→20:15)
[2020-07-08 13:20] LABS: Basophils % (A) 0 %; Eosinophils % (A) 0 %; HCT 40.6 % (39.0-53.0); HGB 13.1 gm/dL (13.0-17.5); Lymphocytes # (A) 1.3 k/uL (1.0-4.8); Lymphocytes % (A) 8 %; MCH 31.4 pg (25.0-35.0); MCHC 32.4 g/dL (31.0-37.0); MCV 96.7 fL (80.0-100.0); Mean Platelet Volume 9.7; Monocytes % (A) 6 %; Neutrophils # (A) 14.3 k/uL (1.3-7.7); Neutrophils % (A) 84 %; Platelet Count 144 k/uL (150-450); RBC 4.19 m/uL (4.30-5.90)
[2020-07-08 13:25] LABS: ALT 19 U/L (4-49); AST 45 U/L (17-59); African American GFR (CKD) >90 (>60 ml/min/1.73 sqM); Albumin 3.6 g/dL (3.5-5.0); Alkaline Phosphatase 46 U/L (38-126); Anion Gap 7 mmol/L; Blood Urea Nitrogen 21 mg/dL (9-20); Calcium 8.5 mg/dL (8.4-10.2); Carbon Dioxide 27 mmol/L (22-30); Chloride 100 mmol/L (98-107); Glucose 119 mg/dL (74-99); Non-African American GFR(CKD) 90 (>60 ml/min/1.73 sqM); Potassium 3.7 mmol/L (3.5-5.1); Sodium 134 mmol/L (137-145); Total Bilirubin 0.8 mg/dL (0.2-1.3); Total Protein 6.6 g/dL (6.3-8.2)
--- NOTE | 2020-07-08 13:52 | ECHOF ---
Referral Reason:elevTrop MEASUREMENTS -------- HEIGHT: 180.3 cm WEIGHT: 136.1 kg BP: RVIDd: 3.2 cm (< 3.3) IVSd: 1.4 cm (0.6 - 1.1) LVIDd: 5.5 cm (3.9 - 5.3) LVPWd: 1.4 cm (0.6 - 1.1) IVSs: 2.2 cm LVIDs: 3.6 cm LVPWs: 1.9 cm LAESV Index (A-L): 24.93 ml/m Ao Diam: 3.2 cm (2.0 - 3.7) AV Cusp: 2.3 cm (1.5 - 2.6) LA Diam: 4.8 cm (2.7 - 3.8) RAP: 5.00 mmHg RVSP: 16.99 mmHg FINDINGS -------- Atrial fibrillation. This was a technically difficult study with suboptimal views. The left ventricular size is normal. There is moderate concentric left ventricular hypertrophy. O verall left ventricular systolic function is mildly impaired with, an EF between 45 - 50 %. Left ve ntricular fillimg pressure cannot be estimated due to Atrial fibrillation. The right ventricle is normal in size. The left atrial size is normal. Normal LA size by volume 22+/-6 ml/m2. The right atrial size is normal. 5.0mg of Lumason was utilized for enhancement of images The aortic valve is trileaflet and appears structurally normal. The mitral valve is normal. Mild mitral regurgitation is present. The tricuspid valve appears structurally normal. Trace tricuspid regurgitation present. Right lorenzo tricular systolic pressure is normal at < 35 mmHg. There is no pulmonic regurgitation present. The aortic root size is normal. IVC Not well visulized. There is no pericardial effusion. CONCLUSIONS -------- 1. The left ventricular size is normal. 2. There is moderate concentric left ventricular hypertrophy. 3. Overall left ventricular systolic function is mildly impaired with, an EF between 45 - 50 %. 4. Left ventricular fillimg pressure cannot be estimated due to Atrial fibrillation. 5. Mild mitral regurgitation is present. 6. Trace tricuspid regurgitation present. 7. There is no pericardial effusion. PHYSICIAN UNDERWRITER: Holli Rocha RDCS
--- NOTE | 2020-07-08 14:04 | P.HPIM ---
History of Present Illness H&P Date: 07/08/20 Jaya Simons, is a 69-year-old male who presented to [facility] due to left lower extremity erythema and swelling and tenderness patient stated that a few days ago he cleaned his porch subsequently he started having swelling pain and erythema in his left pretibial area that extended upword towards his thigh, subsequently he was feeling tired and weak and decided to go to emergency room, he was evaluated at [facility], he was found to have atrial fibrillation with rapid ventricular response, and slightly elevated troponin on top of left lower extremity cellulitis, he was transferred to [facility] for further evaluation and treatment. In the emergency room patient was evaluated by Dr. Curtis, his vital exam reveals a temperature of 99.2 pulse 1 or 2 respiration 22 blood pressure 118/71 pulse ox 99% on room air, his white blood count was elevated at 17,000 troponin level was slightly elevated at 0.07 patient was admitted to telemetry floor cardiology consultation and infectious disease consultation were requested. He was started on IV Rocephin on admission. Patient has a known history of atrial fibrillation he is maintained on Xarelto to 20 mg by mouth daily for anticoagulation, he is also maintained on atenolol and digoxin for rate control. Patient denies any previous history of lower extremity cellulitis, he denies any history of diabetes mellitus Past Medical History Past Medical History: Atrial Fibrillation, Hyperlipidemia, Hypertension, Myocardial Infarction ([place]), Osteoarthritis (OA), Prostate Disorder, Skin Disorder, Sleep Apnea/CPAP/BIPAP Additional Past Medical History / Comment(s): uses CPAP, psoriasis, hx. colon polyps-benign, past uti-ecoli 2014 Last Myocardial Infarction Date:: 2007 History of Any Multi-Drug Resistant Organisms: None Reported Past Surgical History: Heart Catheterization, Hernia Repair, Tonsillectomy Additional Past Surgical History / Comment(s): colonoscopy/polypectomy Past Anesthesia/Blood Transfusion Reactions: No Reported Reaction Past Psychological History: No Psychological Hx Reported Smoking Status: Former smoker Past Alcohol Use History: Occasional Additional Past Alcohol Use History / Comment(s): started smoking age 16-smoked cigarretees from [age] age 20 then took up cigars and chewing. [id number]. no alcohol now Past Drug Use History: None Reported - Past Family History Mother Family Medical History: Cancer Additional Family Medical History / Comment(s): "female cancer" Father Family Medical History: Cancer Additional Family Medical History / Comment(s): brain tumor and lung cancer Medications and Allergies Home Medications Medication Instructions Recorded Confirmed Type Digoxin [Lanoxin] 250 mcg PO DAILY@199902/17/14 07/08/20 History Multivitamin [Men's Multi-Vitamin] 1 tab PO DAILY@199902/17/14 07/08/20 History Rivaroxaban [Xarelto] 20 mg PO DAILY@199902/17/14 07/08/20 History Tamsulosin [Flomax] 0.8 mg PO DAILY@199902/17/14 07/08/20 History Finasteride [Proscar] 5 mg PO DAILY@199907/27/18 07/08/20 History atenoloL [Tenormin] 25 mg PO DAILY@199907/27/18 07/08/20 History Allergies Allergy/AdvReac Type Severity Reaction Status Date / Time No Known Allergies Allergy Verified 07/08/20 08:47 Physical Exam Vitals: Vital Signs Temp Pulse Pulse Resp BP BP Pulse Ox 07/08/20 08:00 98.5 F 107 H 18 128/62 97 07/08/20 07:50 80 07/08/20 07:40 80 07/08/20 05:09 97.5 F L 98 20 117/85 98 07/08/20 04:24 99.3 F 99 22 112/74 98 07/08/20 03:12 99.2 F 102 H 221 H 118/71 99 Intake and Output 07/07/20 07/08/20 07/08/20 22:59 06:59 14:59 Other: # Voids 1 Weight 136.078 kg In general patient is alert and oriented 3 in no apparent distress HEENT head normocephalic and atraumatic Neck is supple no JVD no goiter no lymphadenopathy Chest exam reveals a few scattered rhonchi no wheezing Cardiac exam reveals regular heart sounds S1 and S2 no gallops no murmurs Abdomen is soft nontender no organomegaly with normal bowel sounds Extremity exam reveals no edema on the right no cyanosis or clubbing On the left there is significant erythema in the area extending from the ankle up to the knee, there is minimal erythema in the left thigh area, there is a small scab in the left pretibial area There is dry skin in the heel area with large deep crack in the skin Neurological examination reveals no gross focal deficit Results CBC & Chem 7: 07/08/20 08:52 07/08/20 08:52 Labs: Abnormal Lab Results - Last 24 Hours (Table) 07/08/20 07/08/20 Range/Units 05:27 08:52 Troponin I 0.070 H* (0.000-0.034) ng/mL HDL Cholesterol 28 L (40-60) mg/dL Thrombosis Risk Factor Assmnt - Choose All That Apply Each Factor Represents 1 point: Obesity (BMI >25) Each Risk Factor Represents 2 Points: Age 61-74 years Thrombosis Risk Factor Assessment Total Risk Factor Score: 3 Thrombosis Risk Factor Assessment Level: Moderate Risk Assessment and Plan Plan: 1. Left lower extremity cellulitis 2. Atrial fibrillation, chronic heart rate is well-controlled at this time around 100 3. Slightly elevated troponin level cardiology consultation was requested 4. Underlying history of hypertension 5. Underlying history of benign prostatic hypertrophy 6. Underlying history of hyperlipidemia 7. Previous history of coronary artery disease with myocardial infarction 8. History of obstructive sleep apnea maintained on CPAP At this time patient is started on IV antibiotic and admitted to telemetry floor Cardiology consultation and infectious disease consultation were requested Will follow closely
[2020-07-08] MEDS ORDERED: atenoloL 25 MG TAB PO SCH (20:00)
[2020-07-08] MEDS: TAMSULOSIN 0.4 MG CAP.ER.24H PO SCH (20:14)
[2020-07-08] MEDS: RIVAROXABAN 20 MG TAB PO SCH (20:15)
[2020-07-08] MEDS: FINASTERIDE 5 MG TAB PO SCH (20:15)
[2020-07-08] MEDS: MULTIVITAMINS, THERA 1 EACH TAB PO SCH (20:15)
[2020-07-08] MEDS: DIGOXIN 250 MCG TAB PO SCH (20:15)
[2020-07-08] MEDS ORDERED: DILTIAZEM DRIP BOLUS FROM BAG 1 MG SOLN IV ONE (21:38)
[2020-07-08] MEDS ORDERED: DILTIAZEM 125 MG in SODIUM CHLORIDE 0.9% 100 ML IV SCH (22:00)
--- NOTE | 2020-07-08 22:58 | P.CONS ---
History of Present Illness - Reason for Consult Consult date: 07/08/20 Left lower extremity cellulitis Requesting physician: Shavon Fitch - Chief Complaint Left leg swelling and redness x few days - History of Present Illness Patient is a 69 year old male presented to [facility] yesterday for evaluation of left lower extremity pain and swelling and redness of 1 week duration patient mentioned that is Aquacel he was cleaning up his porch and not sure if he has been bitten by any insect subsequently his notices his left leg becoming more swollen and red, patient be complaining of pain to the left leg to be more of a dull aching intensity is about 6 out of 10 and no radiation patient currently did not have any open wound or any drainage has been complaining of some chills and did have low-grade fever subsequently the patient was transferred to [facility] for further management of his left lower extremity cellulitis and possible sepsis, on arrival to the ER the patient did have low-grade fever of 99.2, patient did have a white count of 17,000 did have mildly elevated troponin and chest x-ray correlate for CHF exacerbation patient was started on Rocephin 1 g and infection disease was consulted for further management of his left lower extremity cellulitis Review of Systems Positive point has been mentioned in the HPI rest of the systems are negative Past Medical History Past Medical History: Atrial Fibrillation, Hyperlipidemia, Hypertension, Myocardial Infarction ([place]), Osteoarthritis (OA), Prostate Disorder, Skin Disorder, Sleep Apnea/CPAP/BIPAP Additional Past Medical History / Comment(s): uses CPAP, psoriasis, hx. colon polyps-benign, past uti-ecoli 2014 Last Myocardial Infarction Date:: 2007 History of Any Multi-Drug Resistant Organisms: None Reported Past Surgical History: Heart Catheterization, Hernia Repair, Tonsillectomy Additional Past Surgical History / Comment(s): colonoscopy/polypectomy Past Anesthesia/Blood Transfusion Reactions: No Reported Reaction Past Psychological History: No Psychological Hx Reported Smoking Status: Former smoker Past Alcohol Use History: Occasional Additional Past Alcohol Use History / Comment(s): started smoking age 16-smoked cigarretees from [age] age 20 then took up cigars and chewing. [id number]. no alcohol now Past Drug Use History: None Reported - Past Family History Mother Family Medical History: Cancer Additional Family Medical History / Comment(s): "female cancer" Father Family Medical History: Cancer Additional Family Medical History / Comment(s): brain tumor and lung cancer Medications and Allergies Home Medications Medication Instructions Recorded Confirmed Type Digoxin [Lanoxin] 250 mcg PO DAILY@199902/17/14 07/08/20 History Multivitamin [Men's Multi-Vitamin] 1 tab PO DAILY@199902/17/14 07/08/20 History Rivaroxaban [Xarelto] 20 mg PO DAILY@199902/17/14 07/08/20 History Tamsulosin [Flomax] 0.8 mg PO DAILY@199902/17/14 07/08/20 History Finasteride [Proscar] 5 mg PO DAILY@199907/27/18 07/08/20 History atenoloL [Tenormin] 25 mg PO DAILY@199907/27/18 07/08/20 History Allergies Allergy/AdvReac Type Severity Reaction Status Date / Time No Known Allergies Allergy Verified 07/08/20 08:47 Physical Exam Vitals: Vital Signs Temp Pulse Pulse Resp BP BP Pulse Ox 07/08/20 12:00 97.9 F 105 H 18 123/67 97 07/08/20 11:32 96 07/08/20 11:22 92 07/08/20 08:00 98.5 F 107 H 18 128/62 97 07/08/20 07:50 80 07/08/20 07:40 80 07/08/20 05:09 97.5 F L 98 20 117/85 98 07/08/20 04:24 99.3 F 99 22 112/74 98 07/08/20 03:12 99.2 F 102 H 221 H 118/71 99 Intake and Output 07/08/20 07/08/20 07/08/20 06:59 14:59 22:59 Intake Total 240 Balance 240 Intake: Oral 240 Other: # Voids 1 1 Weight 136.078 kg GENERAL DESCRIPTION: An elderly male lying in bed, no distress. No tachypnea or accessory muscle of respiration use. HEENT: Shows Pallor , no scleral icterus. Oral mucous membrane is dry. No pharyngeal erythema or thrush NECK: Trachea central, no thyromegaly. LUNGS: Unlabored breathing. Clear to auscultation anteriorly. No wheeze or crackle. HEART: S1, S2, regular rate and rhythm. No loud murmur ABDOMEN: Soft, no tenderness , guarding or rigidity, no organomegaly EXTREMITIES: Diffuse swelling redness of his left lower extremity slightly warm to touch no skin breakdown or any drainage. SKIN: No rash, no masses palpable. NEUROLOGICAL: The patient is awake, alert, oriented x3, mood and affect normal. Results CBC & Chem 7: 07/08/20 08:52 07/08/20 08:52 Labs: Abnormal Lab Results - Last 24 Hours (Table) 07/08/20 07/08/20 07/08/20 Range/Units 05:27 08:52 08:52 WBC (3.8-10.6) k/uL RBC (4.30-5.90) m/uL Plt Count (150-450) k/uL Neutrophils # (1.3-7.7) k/uL D-Dimer (<0.60) mg/L FEU Sodium (137-145) mmol/L BUN (9-20) mg/dL Glucose (74-99) mg/dL Troponin I 0.070 H* 0.052 H* (0.000-0.034) ng/mL HDL Cholesterol 28 L (40-60) mg/dL 07/08/20 07/08/20 07/08/20 Range/Units 08:52 08:52 08:52 WBC 17.0 H (3.8-10.6) k/uL RBC 4.19 L (4.30-5.90) m/uL Plt Count 144 L (150-450) k/uL Neutrophils # 14.3 H (1.3-7.7) k/uL D-Dimer 0.77 H (<0.60) mg/L FEU Sodium 134 L (137-145) mmol/L BUN 21 H (9-20) mg/dL Glucose 119 H (74-99) mg/dL Troponin I (0.000-0.034) ng/mL HDL Cholesterol (40-60) mg/dL Assessment and Plan Assessment: 1- patient presented to hospital with acute left lower extremity cellulitis in this patient did have diffuse swelling redness likely representing streptococcal cellulitis currently with no evidence of any abscess SUSPICIOUS for gram- negative infection (1) Left leg cellulitis Current Visit: Yes Status: Acute Code(s): L03.116 - CELLULITIS OF LEFT LOWER LIMB SNOMED Code(s): 178875893 Plan: 1- discontinue the Rocephin 2- marked the area of the redness left leg 3- we will start the patient cefazolin 2 g every 8 hours We will follow on clinical condition and cultures to further adjust medication i f needed Thank you for this consultation will follow this patient with you Time with Patient: Greater than 30
[2020-07-09] MEDS: SODIUM CHLORIDE 0.9% 1,000 ML IV SCH ×2 (03:28→20:35)
[2020-07-09] MEDS: IPRATROPIUM-ALBUTEROL 3 ML NEB INHALATION SCH ×6 (04:25→23:45)
[2020-07-09 07:40] LABS: Basophils % (A) 0 %; Eosinophils # (A) 0.1 k/uL (0-0.7); Eosinophils % (A) 1 %; HCT 38.4 % (39.0-53.0); HGB 12.2 gm/dL (13.0-17.5); Lymphocytes # (A) 1.6 k/uL (1.0-4.8); Lymphocytes % (A) 11 %; MCH 30.1 pg (25.0-35.0); MCHC 31.8 g/dL (31.0-37.0); MCV 94.7 fL (80.0-100.0); Mean Platelet Volume 8.3; Monocytes % (A) 7 %; Neutrophils # (A) 11.6 k/uL (1.3-7.7); Neutrophils % (A) 79 %; Platelet Count 129 k/uL (150-450); RBC 4.06 m/uL (4.30-5.90); RDW 13.8 % (11.5-15.5); WBC 14.8 k/uL (3.8-10.6)
[2020-07-09 07:53] LABS: ALT 30 U/L (4-49); AST 76 U/L (17-59); African American GFR (CKD) >90 (>60 ml/min/1.73 sqM); Alkaline Phosphatase 52 U/L (38-126); Anion Gap 8 mmol/L; Blood Urea Nitrogen 22 mg/dL (9-20); Calcium 8.3 mg/dL (8.4-10.2); Carbon Dioxide 30 mmol/L (22-30); Chloride 96 mmol/L (98-107); Glucose 111 mg/dL (74-99); Non-African American GFR(CKD) >90 (>60 ml/min/1.73 sqM); Potassium 3.6 mmol/L (3.5-5.1); Sodium 134 mmol/L (137-145); Total Bilirubin 1.1 mg/dL (0.2-1.3); Total Protein 6.9 g/dL (6.3-8.2)
[2020-07-09] MEDS: ASPIRIN 81 MG PO SCH ×2 (08:30→08:56)
[2020-07-09] MEDS: FUROSEMIDE 10 MG/ML 4 ML VIAL IV SCH ×2 (08:30→20:24)
[2020-07-09] MEDS: atenoloL 25 MG TAB PO SCH (08:30)
[2020-07-09] MEDS ORDERED: ASPIRIN 325 MG TAB PO SCH (09:00)
[2020-07-09] MEDS: METOPROLOL TARTRATE 50 MG TAB PO SCH ×2 (09:51→20:24)
--- NOTE | 2020-07-09 10:37 | P.PN ---
Subjective Progress Note Date: 07/09/20 Jaya Simons, is a 69-year-old male who presented to [facility] due to left lower extremity erythema and swelling and tenderness patient stated that a few days ago he cleaned his porch subsequently he started having swelling pain and erythema in his left pretibial area that extended upword towards his thigh, subsequently he was feeling tired and weak and decided to go to emergency room, he was evaluated at [facility], he was found to have atrial fibrillation with rapid ventricular response, and slightly elevated troponin on top of left lower extremity cellulitis, he was transferred to [facility] for further evaluation and treatment. In the emergency room patient was evaluated by Dr. Curtis, his vital exam reveals a temperature of 99.2 pulse 1 or 2 respiration 22 blood pressure 118/71 pulse ox 99% on room air, his white blood count was elevated at 17,000 troponin level was slightly elevated at 0.07 patient was admitted to telemetry floor cardiology consultation and infectious disease consultation were requested. He was started on IV Rocephin on admission. Patient has a known history of atrial fibrillation he is maintained on Xarelto to 20 mg by mouth daily for anticoagulation, he is also maintained on atenolol and digoxin for rate control. Patient denies any previous history of lower extremity cellulitis, he denies any history of diabetes mellitus. On 07/09/2020 patient was seen and examined on the medical floor he is alert and oriented 3 in no apparent distress he was complaining of nosebleed on and off throughout the night there is some improvement in the erythema in the thigh area however there is some worsening in the erythema down in the pretibial area otherwise patient denies any other symptoms there is no fever or chills no headache or dizziness no chest pain no shortness of breath no cough no nausea or vomiting no abdominal pain no diarrhea no blood in the stools no burning with urination no frequency or urgency and no hematuria no weakness or numbness in any of the extremities and no change in vision speech or gait. Objective - Vital Signs Vital signs: Vital Signs Temp 98.1 F 07/09/20 04:00 Pulse 108 H 07/09/20 04:00 Resp 22 07/09/20 04:00 BP 131/62 07/09/20 04:00 Pulse Ox 94 L 09/20/20 04:00 Intake & Output 07/08/20 07/09/20 07/09/20 18:59 06:59 18:59 Intake Total 480 480 Output Total 1675 Balance 480 -1195 Intake: Oral 480 480 Output: Urine 1675 Other: # Voids 1 2 # Bowel Movements 1 - Exam In general patient is alert and oriented 3 in no apparent distress HEENT head normocephalic and atraumatic Neck is supple no JVD no goiter no lymphadenopathy Chest exam reveals a few scattered rhonchi no wheezing Cardiac exam reveals regular heart sounds S1 and S2 no gallops no murmurs Abdomen is soft nontender no organomegaly with normal bowel sounds Extremity exam reveals no edema on the right no cyanosis or clubbing On the left there is significant erythema in the area extending from the ankle up to the knee, there is a small scab in the left pretibial area There is dry skin in the heel area with large deep crack in the skin Neurological examination reveals no gross focal deficit - Labs CBC & Chem 7: 07/09/20 07:09 07/09/20 07:09 Labs: Abnormal Lab Results - Last 24 Hours (Table) 07/08/20 07/08/20 07/08/20 Range/Units 08:52 08:52 08:52 WBC (3.8-10.6) k/uL RBC (4.30-5.90) m/uL Hgb (13.0-17.5) gm/dL Hct (39.0-53.0) % Plt Count (150-450) k/uL Neutrophils # (1.3-7.7) k/uL D-Dimer 0.77 H (<0.60) mg/L FEU Sodium (137-145) mmol/L Chloride (98-107) mmol/L BUN (9-20) mg/dL Glucose (74-99) mg/dL Calcium (8.4-10.2) mg/dL AST (17-59) U/L Troponin I 0.052 H* (0.000-0.034) ng/mL HDL Cholesterol 28 L (40-60) mg/dL 07/08/20 07/08/20 07/09/20 Range/Units 08:52 08:52 07:09 WBC 17.0 H 14.8 H (3.8-10.6) k/uL RBC 4.19 L 4.06 L (4.30-5.90) m/uL Hgb 12.2 L (13.0-17.5) gm/dL Hct 38.4 L (39.0-53.0) % Plt Count 144 L 129 L (150-450) k/uL Neutrophils # 14.3 H 11.6 H (1.3-7.7) k/uL D-Dimer (<0.60) mg/L FEU Sodium 134 L (137-145) mmol/L Chloride (98-107) mmol/L BUN 21 H (9-20) mg/dL Glucose 119 H (74-99) mg/dL Calcium (8.4-10.2) mg/dL AST (17-59) U/L Troponin I (0.000-0.034) ng/mL HDL Cholesterol (40-60) mg/dL 07/09/20 Range/Units 07:09 WBC (3.8-10.6) k/uL RBC (4.30-5.90) m/uL Hgb (13.0-17.5) gm/dL Hct (39.0-53.0) % Plt Count (150-450) k/uL Neutrophils # (1.3-7.7) k/uL D-Dimer (<0.60) mg/L FEU Sodium 134 L (137-145) mmol/L Chloride 96 L (98-107) mmol/L BUN 22 H (9-20) mg/dL Glucose 111 H (74-99) mg/dL Calcium 8.3 L (8.4-10.2) mg/dL AST 76 H (17-59) U/L Troponin I (0.000-0.034) ng/mL HDL Cholesterol (40-60) mg/dL Microbiology - Last 24 Hours (Table) 07/08/20 04:24 Blood Culture - Preliminary Blood No Growth after 24 hours Assessment and Plan Plan: 1. Left lower extremity cellulitis, patient is currently maintained on IV cefazolin infectious disease following 2. Atrial fibrillation, chronic heart rate is well-controlled at this time around 100 3. Slightly elevated troponin level cardiology consultation was requested 4. Underlying history of hypertension 5. Underlying history of benign prostatic hypertrophy 6. Underlying history of hyperlipidemia 7. Previous history of coronary artery disease with myocardial infarction 8. History of obstructive sleep apnea maintained on CPAP 9. Nosebleeds, Will consult ENT At this time patient is started on IV antibiotic and admitted to telemetry floor Cardiology consultation and infectious disease consultation were requested Will follow closely
--- NOTE | 2020-07-09 11:50 | P.PN ---
Subjective HISTORY OF PRESENTING ILLNESS This is a pleasant 69-year-old male past medical history significant for chronic persistent atrial fibrillation on long-term anticoagulation, hypertension, dyslipidemia, former nicotine dependence, obstructive sleep apnea and morbid obesity. He follows in the office with Dr Cai. Echocardiogram obtained reveals mildly impaired LV systolic function with ejection fraction 45- 50% with no segmental wall motion abnormalities noted. Blood pressure 137/89 heart rate 125. He continues to be maintained on Cardizem infusion at 5 mg per hour. He is resting comfortably in bed. He denies no symptoms of chest discomfort, shortness of breath, dizziness or palpitations. He is diuresing on IV Lasix and maintaining a negative fluid balance. Laboratory data reviewed, WBC 14.8, hemoglobin 12.2, platelets 129, d-dimer 0.77, sodium 134, potassium 3.6, creatinine 0.68, and T proBNP 4850 and LDL 87. The patient is having some epistaxis of the left nare. He feels so he had an irritation with his Covid test. PHYSICAL EXAMINATION CONSTITUTIONAL: No apparent distress. HEENT: Head is normocephalic. Pupils are equal, round. Sclerae anicteric. Mucous membranes of the mouth are moist. No JVD. No carotid bruit. CHEST EXAMINATION: Expiratory wheezes, no rales or rhonchi. No chest wall tenderness is noted on palpation or with deep breathing. HEART EXAMINATION: Irregular rate and rhythm. S1, S2 heard. No murmurs, gallops or rub. EXTREMITIES: 2+ peripheral pulses, right lower extremity erythema and 1+ pitting edema, no edema or redness on the right and no calf tenderness. ASSESSMENT Right lower extremity cellulitis on antibiotics per ID Troponin elevation, flat not indicative of an acute coronary event. The patient has no symptoms suggestive of angina. Chronic persistent atrial fibrillation with varying ventricular rates Acute diastolic heart failure Hypertension Dyslipidemia Obstructive sleep apnea Morbid obesity, BMI 40 PLAN Increase cardizem infusion to 10 mg/hr. Change beta nestor to lopressor 50 mg daily. Ongoing diuresis with IV lasix. Repeat chest xray in the morning. Follow electrolytes and renal function in the morning. Nurse Practitioner note has been reviewed, I agree with a documented findings and plan of care. Patient was seen and examined. Objective - Vital Signs Vital signs: Vital Signs Temp 97.9 F 07/09/20 08:30 Pulse 125 H 07/09/20 08:30 Resp 22 07/09/20 08:30 BP 137/89 07/09/20 08:30 Pulse Ox 96 07/09/20 08:30 Intake & Output 07/08/20 07/09/20 07/09/20 18:59 06:59 18:59 Intake Total 480 480 176.5 Output Total 1675 875 Balance 480 -1195 -698.5 Intake: Intake, IV Titration 56.5 Amount Diltiazem 125 mg In 56.5 Sodium Chloride 0.9% 100 ml @ 5 MG/HR 5 mls/hr IV .Q24H [facility] Rx#:[id number] Oral 480 480 120 Output: Urine 1675 875 Other: # Voids 1 2 # Bowel Movements 1 - Labs CBC & Chem 7: 07/09/20 07:09 07/09/20 07:09 Labs: Abnormal Lab Results - Last 24 Hours (Table) 07/08/20 07/08/20 07/08/20 Range/Units 08:52 08:52 08:52 WBC 17.0 H (3.8-10.6) k/uL RBC 4.19 L (4.30-5.90) m/uL Hgb (13.0-17.5) gm/dL Hct (39.0-53.0) % Plt Count 144 L (150-450) k/uL Neutrophils # 14.3 H (1.3-7.7) k/uL D-Dimer 0.77 H (<0.60) mg/L FEU Sodium 134 L (137-145) mmol/L Chloride (98-107) mmol/L BUN 21 H (9-20) mg/dL Glucose 119 H (74-99) mg/dL Calcium (8.4-10.2) mg/dL AST (17-59) U/L 07/09/20 07/09/20 Range/Units 07:09 07:09 WBC 14.8 H (3.8-10.6) k/uL RBC 4.06 L (4.30-5.90) m/uL Hgb 12.2 L (13.0-17.5) gm/dL Hct 38.4 L (39.0-53.0) % Plt Count 129 L (150-450) k/uL Neutrophils # 11.6 H (1.3-7.7) k/uL D-Dimer (<0.60) mg/L FEU Sodium 134 L (137-145) mmol/L Chloride 96 L (98-107) mmol/L BUN 22 H (9-20) mg/dL Glucose 111 H (74-99) mg/dL Calcium 8.3 L (8.4-10.2) mg/dL AST 76 H (17-59) U/L Microbiology - Last 24 Hours (Table) 07/08/20 04:24 Blood Culture - Preliminary Blood No Growth after 24 hours
[2020-07-09] MEDS: DILTIAZEM 125 MG in SODIUM CHLORIDE 0.9% 100 ML IV SCH ×2 (12:29→20:31)
--- NOTE | 2020-07-09 16:19 | PN ---
PROGRESS NOTE DATE OF SERVICE: 07/09/2020 REASON FOR FOLLOWUP: Left lower extremity cellulitis. INTERVAL HISTORY: Patient is currently afebrile. Apparently the patient did have a problem with last night. Seemed to have control. Denies having any chest pain. No shortness of breath or cough. No abdominal pain. Throbbing pain to the leg has decreased. PHYSICAL EXAMINATION: Blood pressure 125/93, pulse of 107. Temperature 97. He is 96% on room air. General description is an elderly male lying in bed in no distress. Respiratory system: Unlabored breathing. Clear to auscultation anteriorly. Heart S1, S2. Regular rate and rhythm. Abdomen soft, no tenderness. Left thigh redness resolved. Leg tenderness slightly decreased per the RN. LABS: Hemoglobin is 12.1, white count 14.8 with a creatinine 0.68. DIAGNOSTIC IMPRESSION AND PLAN: Patient with acute left lower extremity cellulitis with diffuse swelling and redness and lymphangitis, likely streptococcal disease. The patient is covered with cefazolin and seems to have shown some clinical improvement. To continue and we will monitor clinical course closely. MMODL / IJN: [id number] /
[2020-07-09] MEDS: OXYMETAZOLINE 0.05% NASL SPRAY 1 SPRAY BOTTLE NASAL SCH ×2 (19:37→20:24)
[2020-07-09] MEDS: RIVAROXABAN 20 MG TAB PO SCH (20:18)
[2020-07-09] MEDS: FINASTERIDE 5 MG TAB PO SCH (20:24)
[2020-07-09] MEDS: MULTIVITAMINS, THERA 1 EACH TAB PO SCH (20:24)
[2020-07-09] MEDS: TAMSULOSIN 0.4 MG CAP.ER.24H PO SCH (20:24)
[2020-07-09] MEDS: DIGOXIN 250 MCG TAB PO SCH (20:24)
--- NOTE | 2020-07-10 03:14 | CONS ---
CONSULTATION DATE OF CONSULTATION: 07/09/2020. REASON FOR CONSULTATION: Left epistaxis. HISTORY OF PRESENT ILLNESS: The patient is a pleasant 69-year-old male who was transferred from [facility] in [place], [place] to [facility] Emergency Room Department for evaluation and treatment of weakness, elevated white count, atrial fibrillation, and possible cellulitis of the left lower leg. At the time that the patient was seen in the emergency room, it was decided to admit the patient for further definitive treatment. While in the emergency room, he did not experience any nasal bleeding. He presented to the emergency room on 07/08 and was admitted and 07/09/2020, it was noted that he was having intermittent nosebleeds during the night. Therefore, the ENT service was consulted. The patient's nurse, Holli, stated that the patient had intermittent bleeding through the night and that she had placed a light gauze packing in the left nostril. This apparently has stopped the patient's bleeding. It is to be noted that the patient is on Xarelto because of his atrial fibrillation. When I was consulted, I advised the nurse to check with the medical staff to see the Xarelto could be held in an effort to help stop the epistaxis. At the time of my visit to the patient, he was not actively bleeding and he had apparently accidentally dislodged the nasal packing. PAST MEDICAL HISTORY: Past medical history reveals patient has no known allergies to medications. His home medications include CPAP machine because of sleep apnea, atenolol, Flomax, Xarelto, Proscar, and Lanoxin. REVIEW OF SYSTEMS: Review of systems reveals the cardiovascular system is positive for atrial fibrillation, hypertension, ASHD, possible peripheral vascular disease, and congestive heart failure. Respiratory is negative. Gastrointestinal is negative. Metabolic endocrine is negative. The remainder of the review of systems is essentially unremarkable. PHYSICAL EXAMINATION: This patient is a 69-year-old male who is alert, cooperative and well-oriented to time and place and he is in no acute distress at this time. He is not actively bleeding. HEENT EXAMINATION: Patient is normocephalic. Tympanic membranes are normal. Middle ear spaces are free of any fluid or infection. Pupils are equal, round, react to light and accommodation. Extraocular movements within normal limits. Intranasal examination reveals severe septal deviation to the left with bilateral compensatory hypertrophy of the inferior turbinates. There is an area where there has been some active bleeding recently at the midportion of the septum. There is a newly formed scab over this area and it is not actively bleeding. No further bleeding sites are noted in the nasal vault. Examination of oropharynx with attention to the posterior pharynx does not reveal any bleeding down the posterior pharyngeal wall. Cranial nerves 2 through 12 and the remainder of the head and neck exam are within normal limits. CHEST/CARDIOVASCULAR: Both lung acosta are clear to percussion and auscultation. The patient is in regular sinus rhythm. S1, S2 are present without any murmurs, S3s or S4. ABDOMEN: There is no evidence any masses, megaly, or tenderness. Abdomen is soft. The remainder of physical exam is unremarkable. IMPRESSION: 1. Left anterior posterior epistaxis. 2. Hypertension. 3. Atrial fibrillation. 4. Arteriosclerotic heart disease. 5. Congestive heart failure. 6. Sleep apnea. PLAN: The patient is currently on antibiotics because of his cellulitis and this certainly will help cover any blood that may have migrated into the left maxillary sinus and this will prevent any type of maxillary sinusitis. At the present time, I do not feel any nasal packing needs to be inserted. Certainly the quick acting by the patient's nurse, Holli, stemmed any potential severe nosebleed and I complimented the nurse for doing so. I will order that the patient have Afrin nasal spray, 2 puffs in the left nostril 3 times a day, to keep the nasal blood vessels vasoconstricted and this should prevent any further nosebleeds without resorting to any type of nasal packing, which would certainly cause further mucosal injury. The patient relates that he felt that there was a little trickle of blood from his nose when they did a COVID-19 swab at [facility]. This is not unusual, especially if it is done in the hands of someone not familiar with nasal anatomy, and in a patient that is older and is on a blood thinner. In such cases, this type of procedure has to be done very carefully and certainly should not be extremely painful, although it may be uncomfortable. Normally, the best way to do this is if possible with a moistened cotton tip applicator and the applicator is rotated into the nose/nasal vault as opposed to swabbed around or pushed in a back and forth fashion which certainly in this type of patient could very easily start the patient's nose to bleed. It is also not unusual of patients to bleed only slightly at the time of the initial injury and then later on, especially if the blood pressure increases somewhat, then they may start to bleed significantly. I will follow this patient on a daily basis. If it is possible to stop the Xarelto for 48 hours or at least 24 hours, that would be quite helpful. I want to take this opportunity to thank you for allowing me to assist you in the care of your patient. If I could be of any further assistance, please feel free to call my office. EDIN / HILARIO: [id number] / [id number]
[2020-07-10] MEDS: IPRATROPIUM-ALBUTEROL 3 ML NEB INHALATION SCH ×6 (03:29→23:54)
[2020-07-10 08:03] LABS: Basophils % (A) 0 %; Eosinophils # (A) 0.2 k/uL (0-0.7); Eosinophils % (A) 2 %; HCT 36.9 % (39.0-53.0); Lymphocytes # (A) 1.6 k/uL (1.0-4.8); Lymphocytes % (A) 14 %; MCH 30.9 pg (25.0-35.0); MCHC 32.7 g/dL (31.0-37.0); MCV 94.5 fL (80.0-100.0); Mean Platelet Volume 8.2; Monocytes # (A) 0.9 k/uL (0-1.0); Monocytes % (A) 8 %; Neutrophils % (A) 75 %; Platelet Count 144 k/uL (150-450); RDW 14.1 % (11.5-15.5); WBC 12.1 k/uL (3.8-10.6)
[2020-07-10 08:08] LABS: ALT 44 U/L (4-49); AST 85 U/L (17-59); African American GFR (CKD) >90 (>60 ml/min/1.73 sqM); Albumin 3.6 g/dL (3.5-5.0); Alkaline Phosphatase 67 U/L (38-126); Anion Gap 8 mmol/L; Blood Urea Nitrogen 20 mg/dL (9-20); Calcium 8.1 mg/dL (8.4-10.2); Carbon Dioxide 31 mmol/L (22-30); Chloride 96 mmol/L (98-107); Glucose 99 mg/dL (74-99); Magnesium 1.9 mg/dL (1.6-2.3); Non-African American GFR(CKD) >90 (>60 ml/min/1.73 sqM); Potassium 3.4 mmol/L (3.5-5.1); Sodium 135 mmol/L (137-145); Total Bilirubin 1.1 mg/dL (0.2-1.3); Total Protein 6.6 g/dL (6.3-8.2)
--- NOTE | 2020-07-10 08:56 | XR ---
EXAMINATION TYPE: XR chest 2V DATE OF EXAM: 07/10/2020 COMPARISON: 07/07/2020 and 10/03/2017 HISTORY: 69-year-old male heart failure TECHNIQUE: PA and lateral views FINDINGS: Heart borderline enlarged. Mild elongation thoracic aorta. Suspect some calcified left hilar lymph no jo. Mild interstitial prominence appears increased. Neither nodularity or prominent vessel on end pr ojecting at the right upper lobe. Stable retrocardiac nodularity back to 10/04/2017 compatible with a calcified granuloma. No pleural effusion. IMPRESSION: 1. Developing interstitial prominence, possible developing pulmonary vascular congestion. No may pu lmonary edema. 2. Either a pulmonary nodule or prominent vessel on end projecting at the right upper lobe. Attention on follow-up. 3. Old granulomatous disease.
[2020-07-10] MEDS: FUROSEMIDE 10 MG/ML 4 ML VIAL IV SCH ×2 (09:25→20:14)
[2020-07-10] MEDS: METOPROLOL TARTRATE 50 MG TAB PO SCH ×2 (09:26→20:14)
[2020-07-10] MEDS: OXYMETAZOLINE 0.05% NASL SPRAY 1 SPRAY BOTTLE NASAL SCH ×3 (09:26→21:00)
[2020-07-10] MEDS: ASPIRIN 81 MG PO SCH (09:26)
[2020-07-10] MEDS: DILTIAZEM 125 MG in SODIUM CHLORIDE 0.9% 100 ML IV SCH (09:27)
--- NOTE | 2020-07-10 10:53 | P.PN ---
Subjective Progress Note Date: 07/10/20 HISTORY OF PRESENTING ILLNESS This is a pleasant 69-year-old male past medical history significant for chronic persistent atrial fibrillation on long-term anticoagulation, hypertension, dyslipidemia, former nicotine dependence, obstructive sleep apnea and morbid obesity. He follows in the office with Dr Cai. Echocardiogram obtained reveals mildly impaired LV systolic function with ejection fraction 45- 50% with no segmental wall motion abnormalities noted. He continues this morning to be in atrial fibrillation, on a Cardizem drip at 10 mg per hour, heart rate in the 80s to 90s this morning. Diuresing well on IV Lasix, good urine output. Left leg continues to have Kanu wrap in place. Trace edema to the right lower extremity. Blood pressure 120/60 with a heart rate 80s to 90s this morning, 93% on room air. White blood cell count 12.1, hemoglobin 12.0, platelet count 144. Sodium 135, potassium 3.4, BUN 20, creatinine 0.6. Objective - Vital Signs Vital signs: Vital Signs Temp 97.8 F 07/10/20 04:00 Pulse 99 07/10/20 04:00 Resp 18 07/10/20 04:00 BP 119/67 07/10/20 04:00 Pulse Ox 93 L 07/10/20 04:00 Intake & Output 07/09/20 07/10/20 07/10/20 18:59 06:59 18:59 Intake Total 416.5 1122.000 274.167 Output Total 1350 2050 1275 Balance -933.5 -928.000 -1000.833 Weight 135.6 kg Intake: Intake, IV Titration 56.5 162.000 34.167 Amount Diltiazem 125 mg In 162.000 34.167 Sodium Chloride 0.9% 100 ml @ 10 MG/HR 10 mls/hr IV .[id number] [facility] Rx#: [id number] Diltiazem 125 mg In 56.5 Sodium Chloride 0.9% 100 ml @ 5 MG/HR 5 mls/hr IV .Q24H [facility] Rx#:[id number] Oral 360 960 240 Output: Urine 1350 2050 1275 Other: # Voids 1 2 - Exam CONSTITUTIONAL: No apparent distress. HEENT: Head is normocephalic. Pupils are equal, round. Sclerae anicteric. Mucous membranes of the mouth are moist. No JVD. No carotid bruit. CHEST EXAMINATION: Lungs are clear with diminished air entry bilaterally some fine expiratory wheezing heard HEART EXAMINATION: Irregular rate and rhythm. S1, S2 heard. No murmurs, gallops or rub. EXTREMITIES: 2+ peripheral pulses, right lower extremity erythema and trace edema, left leg has Kanu wrap bandage in place - Labs CBC & Chem 7: 07/10/20 07:02 07/10/20 07:02 Labs: Abnormal Lab Results - Last 24 Hours (Table) 07/10/20 07/10/20 Range/Units 07:02 07:02 WBC 12.1 H (3.8-10.6) k/uL RBC 3.90 L (4.30-5.90) m/uL Hgb 12.0 L (13.0-17.5) gm/dL Hct 36.9 L (39.0-53.0) % Plt Count 144 L (150-450) k/uL Neutrophils # 9.0 H (1.3-7.7) k/uL Sodium 135 L (137-145) mmol/L Potassium 3.4 L (3.5-5.1) mmol/L Chloride 96 L (98-107) mmol/L Carbon Dioxide 31 H (22-30) mmol/L Creatinine 0.63 L (0.66-1.25) mg/dL Calcium 8.1 L (8.4-10.2) mg/dL AST 85 H (17-59) U/L Microbiology - Last 24 Hours (Table) 07/08/20 04:24 Blood Culture - Preliminary Blood No Growth after 48 hours Assessment and Plan Plan: ASSESSMENT AND PLAN #1 Left lower extremity cellulitis on antibiotics per ID #2Troponin elevation, flat not indicative of an acute coronary event. The patient has no symptoms suggestive of angina. #3Chronic persistent atrial fibrillation with varying ventricular rates #4Acute diastolic heart failure #5Hypertension #6Dyslipidemia #7Obstructive sleep apnea #8Morbid obesity, BMI 40 Plan From cardiology's perspective, we'll recommend to continue the patient on his current dose of IV Lasix. We will discontinue the IV Cardizem and start him on oral Cardizem, continue current dose of beta nestor. Continue to monitor the patient's intake and output along with daily weights and daily lytes BUN and creatinine. DNP note has been reviewed, I agree with a documented findings and plan of care. Patient was seen and examined.
[2020-07-10] MEDS: POTASSIUM CHLORIDE ER 20 MEQ TAB.ER PO SCH ×3 (12:36→18:58)
[2020-07-10] MEDS: VERAPAMIL 40 MG TAB PO SCH ×3 (12:37→20:59)
--- NOTE | 2020-07-10 16:01 | PN ---
PROGRESS NOTE DATE OF SERVICE: 07/10/2020 REASON FOR FOLLOWUP: Left lower extremity cellulitis. INTERVAL HISTORY: The patient is currently afebrile. The patient is breathing comfortably. Patient denies having any chest pain, no shortness of breath, no cough. No nausea. No abdominal pain. Overall pain and discomfort to the left leg has decreased. PHYSICAL EXAMINATION: Blood pressure 114/70 with a pulse of 92, temperature 96.9. She is 95% on room air. General description is an elderly male, up in the bed in no distress. RESPIRATORY SYSTEM: Unlabored breathing, clear to auscultation anteriorly. HEART: S1, S2. Regular rate and rhythm. ABDOMEN: Soft, no tenderness. Left leg swelling has slightly decreased. LABS: Hemoglobin is 12, white count 1.1, creatinine is 0.63. Blood culture has been negative. DIAGNOSTIC IMPRESSION AND PLAN: Patient with acute left lower extremity cellulitis, seemed to have shown some clinical improvement. Patient to continue with IV cefazolin 2 g q.8 hours. The patient hopefully finish therapy with oral antibiotics. Continue supportive care. MMODL / IJN: [id number] /
--- NOTE | 2020-07-10 17:47 | P.PN ---
Subjective Progress Note Date: 07/10/20 Jaya Simons, is a 69-year-old male who presented to [facility] due to left lower extremity erythema and swelling and tenderness patient stated that a few days ago he cleaned his porch subsequently he started having swelling pain and erythema in his left pretibial area that extended upword towards his thigh, subsequently he was feeling tired and weak and decided to go to emergency room, he was evaluated at [facility], he was found to have atrial fibrillation with rapid ventricular response, and slightly elevated troponin on top of left lower extremity cellulitis, he was transferred to [facility] for further evaluation and treatment. In the emergency room patient was evaluated by Dr. Curtis, his vital exam reveals a temperature of 99.2 pulse 1 or 2 respiration 22 blood pressure 118/71 pulse ox 99% on room air, his white blood count was elevated at 17,000 troponin level was slightly elevated at 0.07 patient was admitted to telemetry floor cardiology consultation and infectious disease consultation were requested. He was started on IV Rocephin on admission. Patient has a known history of atrial fibrillation he is maintained on Xarelto to 20 mg by mouth daily for anticoagulation, he is also maintained on atenolol and digoxin for rate control. Patient denies any previous history of lower extremity cellulitis, he denies any history of diabetes mellitus. On 07/09/2020 patient was seen and examined on the medical floor he is alert and oriented 3 in no apparent distress he was complaining of nosebleed on and off throughout the night there is some improvement in the erythema in the thigh area however there is some worsening in the erythema down in the pretibial area otherwise patient denies any other symptoms there is no fever or chills no headache or dizziness no chest pain no shortness of breath no cough no nausea or vomiting no abdominal pain no diarrhea no blood in the stools no burning with urination no frequency or urgency and no hematuria no weakness or numbness in any of the extremities and no change in vision speech or gait. On 07/10/2020 patient was seen and examined on the medical floor he is alert and oriented in no distress he is feeling better no further episodes of nosebleed there is no fever or chills no headache or dizziness no chest pain no shortness of breath no cough no nausea or vomiting no abdominal pain no diarrhea no blood in the stools no burning with urination no frequency or urgency no hematuria, erythema on the left lower extremity is improving Objective - Vital Signs Vital signs: Vital Signs Temp 96.9 F L 07/10/20 08:00 Pulse 92 07/10/20 12:00 Resp 18 07/10/20 04:00 BP 114/71 07/10/20 12:00 Pulse Ox 95 07/10/20 12:00 Intake & Output 07/09/20 07/10/20 07/10/20 18:59 06:59 18:59 Intake Total 416.5 1122.000 496.167 Output Total 1350 2050 2475 Balance -933.5 -928.000 -1978.833 Weight 135.6 kg Intake: Intake, IV Titration 56.5 162.000 34.167 Amount Diltiazem 125 mg In 162.000 34.167 Sodium Chloride 0.9% 100 ml @ 10 MG/HR 10 mls/hr IV .[id number] [facility] Rx#: [id number] Diltiazem 125 mg In 56.5 Sodium Chloride 0.9% 100 ml @ 5 MG/HR 5 mls/hr IV .Q24H [facility] Rx#:[id number] Oral 360 960 462 Output: Urine 1350 2050 2475 Other: # Voids 1 2 - Exam In general patient is alert and oriented 3 in no apparent distress HEENT head normocephalic and atraumatic Neck is supple no JVD no goiter no lymphadenopathy Chest exam reveals a few scattered rhonchi no wheezing Cardiac exam reveals regular heart sounds S1 and S2 no gallops no murmurs Abdomen is soft nontender no organomegaly with normal bowel sounds Extremity exam reveals no edema on the right no cyanosis or clubbing On the left there is significant erythema in the area extending from the ankle up to the knee, there is a small scab in the left pretibial area There is dry skin in the heel area with large deep crack in the skin Neurological examination reveals no gross focal deficit - Labs CBC & Chem 7: 07/10/20 07:02 07/10/20 07:02 Labs: Abnormal Lab Results - Last 24 Hours (Table) 07/10/20 07/10/20 Range/Units 07:02 07:02 WBC 12.1 H (3.8-10.6) k/uL RBC 3.90 L (4.30-5.90) m/uL Hgb 12.0 L (13.0-17.5) gm/dL Hct 36.9 L (39.0-53.0) % Plt Count 144 L (150-450) k/uL Neutrophils # 9.0 H (1.3-7.7) k/uL Sodium 135 L (137-145) mmol/L Potassium 3.4 L (3.5-5.1) mmol/L Chloride 96 L (98-107) mmol/L Carbon Dioxide 31 H (22-30) mmol/L Creatinine 0.63 L (0.66-1.25) mg/dL Calcium 8.1 L (8.4-10.2) mg/dL AST 85 H (17-59) U/L Microbiology - Last 24 Hours (Table) 07/08/20 04:24 Blood Culture - Preliminary Blood No Growth after 48 hours Assessment and Plan Plan: 1. Left lower extremity cellulitis, patient is currently maintained on IV cefazolin infectious disease following 2. Atrial fibrillation, chronic heart rate is well-controlled at this time around 100 3. Slightly elevated troponin level cardiology consultation was requested 4. Underlying history of hypertension 5. Underlying history of benign prostatic hypertrophy 6. Underlying history of hyperlipidemia 7. Previous history of coronary artery disease with myocardial infarction 8. History of obstructive sleep apnea maintained on CPAP 9. Nosebleeds, Will consult ENT At this time patient is started on IV antibiotic and admitted to telemetry floor Cardiology consultation and infectious disease consultation were requested Recommendation from ENT and cardiology reviewed, will follow in a.m.
[2020-07-10] MEDS: RIVAROXABAN 20 MG TAB PO SCH (20:12)
[2020-07-10] MEDS: MULTIVITAMINS, THERA 1 EACH TAB PO SCH (20:13)
[2020-07-10] MEDS: DIGOXIN 250 MCG TAB PO SCH (20:13)
[2020-07-10] MEDS: FINASTERIDE 5 MG TAB PO SCH (20:13)
[2020-07-10] MEDS: TAMSULOSIN 0.4 MG CAP.ER.24H PO SCH (20:14)
[2020-07-11] MEDS: SODIUM CHLORIDE 0.9% 1,000 ML IV SCH (05:08)
[2020-07-11] MEDS: IPRATROPIUM-ALBUTEROL 3 ML NEB INHALATION SCH ×4 (08:02→18:34)
[2020-07-11 08:07] LABS: African American GFR (CKD) >90 (>60 ml/min/1.73 sqM); Anion Gap 7 mmol/L; Blood Urea Nitrogen 18 mg/dL (9-20); Calcium 8.2 mg/dL (8.4-10.2); Carbon Dioxide 32 mmol/L (22-30); Chloride 98 mmol/L (98-107); Glucose 89 mg/dL (74-99); Non-African American GFR(CKD) >90 (>60 ml/min/1.73 sqM); Potassium 3.8 mmol/L (3.5-5.1); Sodium 137 mmol/L (137-145)
[2020-07-11] MEDS: ASPIRIN 81 MG PO SCH (08:21)
[2020-07-11] MEDS: OXYMETAZOLINE 0.05% NASL SPRAY 1 SPRAY BOTTLE NASAL SCH ×3 (08:21→22:35)
[2020-07-11] MEDS: METOPROLOL TARTRATE 50 MG TAB PO SCH ×2 (08:21→20:26)
[2020-07-11] MEDS: VERAPAMIL 40 MG TAB PO SCH (08:21)
[2020-07-11] MEDS: FUROSEMIDE 10 MG/ML 4 ML VIAL IV SCH (08:22)
--- NOTE | 2020-07-11 14:50 | P.PN ---
Subjective Progress Note Date: 07/11/20 HISTORY OF PRESENTING ILLNESS This is a pleasant 69-year-old male past medical history significant for chronic persistent atrial fibrillation on long-term anticoagulation, hypertension, dyslipidemia, former nicotine dependence, obstructive sleep apnea and morbid obesity. He follows in the office with Dr Cai. Echocardiogram obtained reveals mildly impaired LV systolic function with ejection fraction 45- 50% with no segmental wall motion abnormalities noted. He continues this morning to be in atrial fibrillation, on a Cardizem drip at 10 mg per hour, heart rate in the 80s to 90s this morning. Diuresing well on IV Lasix, good urine output. Left leg continues to have Kanu wrap in place. Trace edema to the right lower extremity. Blood pressure 120/60 with a heart rate 80s to 90s this morning, 93% on room air. White blood cell count 12.1, hemoglobin 12.0, platelet count 144. Sodium 135, potassium 3.4, BUN 20, creatinine 0.6. 07/11/2020 Patient was seen and examined this morning, feels well today. Weight is down, diuresed well through the night last night. His heart rate is noted to go up into the 1 4150 range with ambulation. At rest it stays at about 100. Blood pressure 114/70. Sodium 137, potassium 3.8, BUN 18, creatinine 0.6. Objective - Vital Signs Vital signs: Vital Signs Temp 98.2 F 07/11/20 08:00 Pulse 103 H 07/11/20 12:00 Resp 18 07/11/20 08:00 BP 115/76 07/11/20 12:00 Pulse Ox 96 07/11/20 12:00 Intake & Output 07/10/20 07/11/20 07/11/20 18:59 06:59 18:59 Intake Total 732.167 480 Output Total 2475 2250 900 Balance -1742.833 -2250 -420 Weight 135 kg Intake: Intake, IV Titration 34.167 Amount Diltiazem 125 mg In 34.167 Sodium Chloride 0.9% 100 ml @ 10 MG/HR 10 mls/hr IV .[id number] [facility] Rx#: [id number] Oral 698 480 Output: Urine 2475 2250 900 Other: Voiding Method Toilet Toilet # Voids 2 - Exam CONSTITUTIONAL: No apparent distress. HEENT: Head is normocephalic. Pupils are equal, round. Sclerae anicteric. Mucous membranes of the mouth are moist. No JVD. No carotid bruit. CHEST EXAMINATION: Lungs are clear with improvement in air entry bilaterally HEART EXAMINATION: Irregular rate and rhythm. S1, S2 heard. No murmurs, gallops or rub. EXTREMITIES: 2+ peripheral pulses, right lower extremity erythema and trace mali a, left leg has Kanu wrap bandage in place - Labs CBC & Chem 7: 07/10/20 07:02 07/11/20 07:10 Labs: Abnormal Lab Results - Last 24 Hours (Table) 07/11/20 Range/Units 07:10 Carbon Dioxide 32 H (22-30) mmol/L Creatinine 0.61 L (0.66-1.25) mg/dL Calcium 8.2 L (8.4-10.2) mg/dL Microbiology - Last 24 Hours (Table) 07/08/20 04:24 Blood Culture - Preliminary Blood No Growth after 72 hours Assessment and Plan Plan: ASSESSMENT AND PLAN #1 Left lower extremity cellulitis on antibiotics per ID #2Troponin elevation, flat not indicative of an acute coronary event. The patient has no symptoms suggestive of angina. #3Chronic persistent atrial fibrillation with varying ventricular rates #4Acute diastolic heart failure #5Hypertension #6Dyslipidemia #7Obstructive sleep apnea #8Morbid obesity, BMI 40 Plan From cardiology's perspective, we will discontinue the IV Lasix today and start the patient on oral diuretics. We will also increase the dose of verapamil to 80 mg by mouth 3 times a day. DNP note has been reviewed, I agree with a documented findings and plan of care. Patient was seen and examined.
--- NOTE | 2020-07-11 15:34 | PN ---
PROGRESS NOTE DATE OF SERVICE: 07/11/2020 REASON FOR FOLLOWUP: Left lower extremity cellulitis noted. INTERVAL HISTORY: The patient is currently afebrile. The patient is breathing comfortably. Denies having any chest pain. No shortness of breath, no cough or abdominal pain. The overall pain in the left leg has decreased. PHYSICAL EXAMINATION: Blood pressure 156/80 with a pulse of 106, temperature 98.2. He is 96% on room air. General description is an elderly male, lying in bed in no distress. RESPIRATORY SYSTEM: Unlabored breathing, clear to auscultation anteriorly. Heart S1, S2. Regular rate and rhythm. ABDOMEN: Soft, no tenderness. LABS: BUN of 18, creatinine 0.61. Blood culture has been negative. DIAGNOSTIC IMPRESSION AND PLAN: Patient with acute left lower extremity cellulitis in this patient who did have shown clinical improvement on cefazolin to continue while the patient will be placed on or Keflex on discharge. Continue supportive care. MMODL / IJN: [id number] /
[2020-07-11] MEDS: VERAPAMIL 80 MG TAB PO SCH ×2 (17:09→22:35)
[2020-07-11] MEDS: FUROSEMIDE 40 MG TAB PO SCH (17:11)
--- NOTE | 2020-07-11 18:00 | P.PN ---
Subjective Progress Note Date: 07/11/20 Jaya Simons, is a 69-year-old male who presented to [facility] due to left lower extremity erythema and swelling and tenderness patient stated that a few days ago he cleaned his porch subsequently he started having swelling pain and erythema in his left pretibial area that extended upword towards his thigh, subsequently he was feeling tired and weak and decided to go to emergency room, he was evaluated at [facility], he was found to have atrial fibrillation with rapid ventricular response, and slightly elevated troponin on top of left lower extremity cellulitis, he was transferred to [facility] for further evaluation and treatment. In the emergency room patient was evaluated by Dr. Curtis, his vital exam reveals a temperature of 99.2 pulse 1 or 2 respiration 22 blood pressure 118/71 pulse ox 99% on room air, his white blood count was elevated at 17,000 troponin level was slightly elevated at 0.07 patient was admitted to telemetry floor cardiology consultation and infectious disease consultation were requested. He was started on IV Rocephin on admission. Patient has a known history of atrial fibrillation he is maintained on Xarelto to 20 mg by mouth daily for anticoagulation, he is also maintained on atenolol and digoxin for rate control. Patient denies any previous history of lower extremity cellulitis, he denies any history of diabetes mellitus. On 07/09/2020 patient was seen and examined on the medical floor he is alert and oriented 3 in no apparent distress he was complaining of nosebleed on and off throughout the night there is some improvement in the erythema in the thigh area however there is some worsening in the erythema down in the pretibial area otherwise patient denies any other symptoms there is no fever or chills no headache or dizziness no chest pain no shortness of breath no cough no nausea or vomiting no abdominal pain no diarrhea no blood in the stools no burning with urination no frequency or urgency and no hematuria no weakness or numbness in any of the extremities and no change in vision speech or gait. On 07/10/2020 patient was seen and examined on the medical floor he is alert and oriented in no distress he is feeling better no further episodes of nosebleed there is no fever or chills no headache or dizziness no chest pain no shortness of breath no cough no nausea or vomiting no abdominal pain no diarrhea no blood in the stools no burning with urination no frequency or urgency no hematuria, erythema on the left lower extremity is improving. On 07/11/2020 patient was seen and examined on the medical floor he is alert and oriented in no distress, he has some shortness of breath with activity otherwise he denies any complaints at this time, his lower extremity erythema is improving, there is no fever or chills no headache or dizziness no chest pain no cough no nausea or vomiting no abdominal pain no diarrhea no blood in the stools no burning with urination no frequency or urgency and no hematuria Objective - Vital Signs Vital signs: Vital Signs Temp 98.2 F 07/11/20 08:00 Pulse 103 H 07/11/20 12:00 Resp 18 07/11/20 08:00 BP 115/76 07/11/20 12:00 Pulse Ox 96 07/11/20 12:00 Intake & Output 07/10/20 07/11/20 07/11/20 18:59 06:59 18:59 Intake Total 732.167 600 Output Total 2475 2250 900 Balance -1742.833 -2250 -300 Weight 135 kg Intake: Intake, IV Titration 34.167 Amount Diltiazem 125 mg In 34.167 Sodium Chloride 0.9% 100 ml @ 10 MG/HR 10 mls/hr IV .[id number] [facility] Rx#: [id number] Oral 698 600 Output: Urine 2475 2250 900 Other: Voiding Method Toilet Toilet # Voids 2 - Exam In general patient is alert and oriented 3 in no apparent distress HEENT head normocephalic and atraumatic Neck is supple no JVD no goiter no lymphadenopathy Chest exam reveals a few scattered rhonchi no wheezing Cardiac exam reveals regular heart sounds S1 and S2 no gallops no murmurs Abdomen is soft nontender no organomegaly with normal bowel sounds Extremity exam reveals no edema on the right no cyanosis or clubbing On the left there is significant erythema in the area extending from the ankle up to the knee, there is a small scab in the left pretibial area There is dry skin in the heel area with large deep crack in the skin Neurological examination reveals no gross focal deficit - Labs CBC & Chem 7: 07/10/20 07:02 07/11/20 07:10 Labs: Abnormal Lab Results - Last 24 Hours (Table) 07/11/20 Range/Units 07:10 Carbon Dioxide 32 H (22-30) mmol/L Creatinine 0.61 L (0.66-1.25) mg/dL Calcium 8.2 L (8.4-10.2) mg/dL Microbiology - Last 24 Hours (Table) 07/08/20 04:24 Blood Culture - Preliminary Blood No Growth after 72 hours Assessment and Plan Plan: 1. Left lower extremity cellulitis, patient is currently maintained on IV cefazolin infectious disease following 2. Atrial fibrillation, chronic heart rate is well-controlled at this time around 100 3. Slightly elevated troponin level cardiology consultation was requested 4. Underlying history of hypertension 5. Underlying history of benign prostatic hypertrophy 6. Underlying history of hyperlipidemia 7. Previous history of coronary artery disease with myocardial infarction 8. History of obstructive sleep apnea maintained on CPAP 9. Nosebleeds, Will consult ENT At this time patient is started on IV antibiotic and admitted to telemetry floor Cardiology consultation and infectious disease consultation were requested Recommendation from ENT and cardiology reviewed, will follow in a.m.
[2020-07-11] MEDS: DIGOXIN 250 MCG TAB PO SCH (20:25)
[2020-07-11] MEDS: FINASTERIDE 5 MG TAB PO SCH (20:25)
[2020-07-11] MEDS: RIVAROXABAN 20 MG TAB PO SCH (20:25)
[2020-07-11] MEDS: TAMSULOSIN 0.4 MG CAP.ER.24H PO SCH (20:25)
[2020-07-11] MEDS: MULTIVITAMINS, THERA 1 EACH TAB PO SCH (20:25)
[2020-07-12] MEDS: SODIUM CHLORIDE 0.9% 1,000 ML IV SCH (03:35)
[2020-07-12] MEDS: IPRATROPIUM-ALBUTEROL 3 ML NEB INHALATION SCH ×3 (08:06→15:53)
[2020-07-12] MEDS: ASPIRIN 81 MG PO SCH (10:02)
[2020-07-12] MEDS: OXYMETAZOLINE 0.05% NASL SPRAY 1 SPRAY BOTTLE NASAL SCH (10:03)
[2020-07-12] MEDS: METOPROLOL TARTRATE 50 MG TAB PO SCH (10:03)
[2020-07-12] MEDS: FUROSEMIDE 40 MG TAB PO SCH (10:03)
[2020-07-12] MEDS: VERAPAMIL 80 MG TAB PO SCH (10:03)
[2020-07-12 10:44] VITALS: TEMP 97.9
[2020-07-12 11:11] LABS: Basophils # (A) 0.1 k/uL (0-0.2); Basophils % (A) 0 %; Eosinophils # (A) 0.2 k/uL (0-0.7); Eosinophils % (A) 1 %; Lymphocytes # (A) 1.4 k/uL (1.0-4.8); Lymphocytes % (A) 11 %; MCH 30.1 pg (25.0-35.0); MCHC 31.7 g/dL (31.0-37.0); Mean Platelet Volume 7.5; Monocytes # (A) 0.7 k/uL (0-1.0); Monocytes % (A) 5 %; Neutrophils # (A) 10.6 k/uL (1.3-7.7); Neutrophils % (A) 81 %; Platelet Count 228 k/uL (150-450); RBC 4.31 m/uL (4.30-5.90); RDW 13.7 % (11.5-15.5); WBC 13.1 k/uL (3.8-10.6)
--- NOTE | 2020-07-12 11:13 | P.PN ---
Subjective Progress Note Date: 07/12/20 HISTORY OF PRESENTING ILLNESS This is a pleasant 69-year-old male past medical history significant for chronic persistent atrial fibrillation on long-term anticoagulation, hypertension, dyslipidemia, former nicotine dependence, obstructive sleep apnea and morbid obesity. He follows in the office with Dr Cai. Echocardiogram obtained reveals mildly impaired LV systolic function with ejection fraction 45- 50% with no segmental wall motion abnormalities noted. He continues this morning to be in atrial fibrillation, on a Cardizem drip at 10 mg per hour, heart rate in the 80s to 90s this morning. Diuresing well on IV Lasix, good urine output. Left leg continues to have Kanu wrap in place. Trace edema to the right lower extremity. Blood pressure 120/60 with a heart rate 80s to 90s this morning, 93% on room air. White blood cell count 12.1, hemoglobin 12.0, platelet count 144. Sodium 135, potassium 3.4, BUN 20, creatinine 0.6. 07/11/2020 Patient was seen and examined this morning, feels well today. Weight is down, diuresed well through the night last night. His heart rate is noted to go up into the 1 4150 range with ambulation. At rest it stays at about 100. Blood pressure 114/70. Sodium 137, potassium 3.8, BUN 18, creatinine 0.6. 07/12/2020 Patient seen and examined this morning, feels well, no edema to his right lower extremity at all today. The left lower extremity continues to have a dressing and wrap in place. Breathing is stable. Blood pressure 128/66 with a heart rate in the 80s, 95% on room air. White blood cell count 13.1, hemoglobin 13, platelet count 228. Objective - Vital Signs Vital signs: Vital Signs Temp 97.9 F 07/12/20 08:00 Pulse 88 07/12/20 08:19 Resp 16 07/12/20 08:00 BP 128/66 07/12/20 08:00 Pulse Ox 95 07/12/20 08:00 Intake & Output 07/11/20 07/12/20 07/12/20 18:59 06:59 18:59 Intake Total 600 810 240 Output Total 900 1425 Balance -300 -615 240 Weight 132.8 kg Intake: Intake, IV Titration 210 Amount Sodium Chloride 0.9% 1, 160 000 ml @ 20 mls/hr IV . Q24H [facility] Rx#:[id number] ceFAZolin 2 gm In Sodium 50 Chloride 0.9% 50 ml @ 100 mls/hr IVPB Q8HR [facility] Rx# :[id number] Oral 600 600 240 Output: Urine 900 1425 Other: Voiding Method Toilet Toilet # Voids 2 - Exam CONSTITUTIONAL: No apparent distress. HEENT: Head is normocephalic. Pupils are equal, round. Sclerae anicteric. Mucous membranes of the mouth are moist. No JVD. No carotid bruit. CHEST EXAMINATION: Lungs are clear with improvement in air entry bilaterally HEART EXAMINATION: Irregular rate and rhythm. S1, S2 heard. No murmurs, gallops or rub. EXTREMITIES: 2+ peripheral pulses, right lower extremity erythema no edema, left leg has Kanu wrap bandage in place - Labs CBC & Chem 7: 07/12/20 10:43 07/11/20 07:10 Labs: Abnormal Lab Results - Last 24 Hours (Table) 07/12/20 Range/Units 10:43 WBC 13.1 H (3.8-10.6) k/uL Neutrophils # 10.6 H (1.3-7.7) k/uL Microbiology - Last 24 Hours (Table) 07/08/20 04:24 Blood Culture - Preliminary Blood No Growth after 96 hours Assessment and Plan Plan: ASSESSMENT AND PLAN #1 Left lower extremity cellulitis on antibiotics per ID #2Troponin elevation, flat not indicative of an acute coronary event. The patient has no symptoms suggestive of angina. #3Chronic persistent atrial fibrillation with varying ventricular rates #4Acute diastolic heart failure #5Hypertension #6Dyslipidemia #7Obstructive sleep apnea #8Morbid obesity, BMI 40 Plan From cardiology's perspective, patient may be able to be discharged home today. He can follow-up with his ben day artist Dr. Patel in one to 2 weeks post discharge. DNP note has been reviewed, I agree with a documented findings and plan of care. Patient was seen and examined.
[2020-07-12 11:40] LABS: ALT 46 U/L (4-49); AST 64 U/L (17-59); African American GFR (CKD) >90 (>60 ml/min/1.73 sqM); Albumin 3.8 g/dL (3.5-5.0); Alkaline Phosphatase 80 U/L (38-126); Anion Gap 9 mmol/L; Blood Urea Nitrogen 18 mg/dL (9-20); Calcium 8.7 mg/dL (8.4-10.2); Carbon Dioxide 31 mmol/L (22-30); Chloride 97 mmol/L (98-107); Glucose 117 mg/dL (74-99); Non-African American GFR(CKD) >90 (>60 ml/min/1.73 sqM); Potassium 3.6 mmol/L (3.5-5.1); Sodium 137 mmol/L (137-145); Total Bilirubin 0.9 mg/dL (0.2-1.3)
[2020-07-12 12:36] VITALS: BP 124/68; PULSE 97; RESP 14
--- NOTE | 2020-07-12 13:18 | P.DS ---
Providers Date of admission: 07/09/20 15:16 Expected date of discharge: 07/12/20 Attending physician: Shavon Fitch Consults: 07/08/20 03:38 Consult Physician Urgent Consulting Provider: Shara Humphries Consult Reason/Comments: elevTrop Do you want consulting provider notified?: Yes 07/08/20 09:43 Consult Physician Routine Consulting Provider: Drew Howell Consult Reason/Comments: cellulitis Do you want consulting provider notified?: Yes 07/09/20 11:05 Consult Physician Urgent Consulting Provider: John Lomeli Consult Reason/Comments: nose bleed Do you want consulting provider notified?: Yes Primary care physician: Shruti [facility] Course: Discharge diagnosis 1. Left lower extremity cellulitis, patient is currently maintained on IV cefazolin infectious disease following. Patient has been cleared by infectious disease. Patient will be DC'd home on Keflex per ID recommendation. Per patient Leg has significantly improved. Blood culture negative 2. Atrial fibrillation, chronic heart rate is well-controlled at this time around 100. Medications have been adjusted per cardiology services. Atenolol DC'd Lopressor twice a day added and verapamil. Discussed case with nurse practitioner per cardiology team patient may be discharged home heart rate has been controlled and follow-up with patient's radiologist outpatient. Patient has been restarted back on Xarelto no evidence of bleeding 3. Slightly elevated troponin level. Per cardiology troponin elevation flat not indicated of acute coronary event 4. Underlying history of hypertension 5. Underlying history of benign prostatic hypertrophy 6. Underlying history of hyperlipidemia 7. Previous history of coronary artery disease with myocardial infarction 8. History of obstructive sleep apnea maintained on CPAP 9. Nosebleeds, Will consult ENT. Patient was evaluated by ENT services nosebleed secondary to COVID test. No further intervention needed per ENT patient may be resumed on his Xeralto. 10. Acute diastolic heart failure. Patient will be DC'd on furosemide twice a day. Outpatient CMP has been ordered to monitor kidney function and electrolyte levels patient will follow-up with his deputy sheriff/investigator for further management Hospital course Jaya Simons, is a 69-year-old male who presented to [facility] due to left lower extremity erythema and swelling and tenderness patient stated that a few days ago he cleaned his porch subsequently he started having swelling pain and erythema in his left pretibial area that extended upword towards his thigh, subsequently he was feeling tired and weak and decided to go to emergency room, he was evaluated at [facility], he was found to have atrial fibrillation with rapid ventricular response, and slightly elevated troponin on top of left lower extremity cellulitis, he was transferred to [facility] for further evaluation and treatment. In the emergency room patient was evaluated by Dr. Curtis, his vital exam reveals a temperature of 99.2 pulse 1 or 2 respiration 22 blood pressure 118/71 pulse ox 99% on room air, his white blood count was elevated at 17,000 troponin level was slightly elevated at 0.07 patient was admitted to telemetry floor cardiology consultation and infectious disease consultation were requested. He was started on IV Rocephin on admission. Patient has a known history of atrial fibrillation he is maintained on Xarelto to 20 mg by mouth daily for anticoagulation, he is also maintained on atenolol a nd digoxin for rate control. Patient denies any previous history of lower extremity cellulitis, he denies any history of diabetes mellitus. On 07/09/2020 patient was seen and examined on the medical floor he is alert and oriented 3 in no apparent distress he was complaining of nosebleed on and off throughout the night there is some improvement in the erythema in the thigh area however there is some worsening in the erythema down in the pretibial area otherwise patient denies any other symptoms there is no fever or chills no headache or dizziness no chest pain no shortness of breath no cough no nausea or vomiting no abdominal pain no diarrhea no blood in the stools no burning with urination no frequency or urgency and no hematuria no weakness or numbness in any of the extremities and no change in vision speech or gait. On 07/10/2020 patient was seen and examined on the medical floor he is alert and oriented in no distress he is feeling better no further episodes of nosebleed there is no fever or chills no headache or dizziness no chest pain no shortness of breath no cough no nausea or vomiting no abdominal pain no diarrhea no blood in the stools no burning with urination no frequency or urgency no hematuria, erythema on the left lower extremity is improving. On 07/11/2020 patient was seen and examined on the medical floor he is alert and oriented in no distress, he has some shortness of breath with activity otherwise he denies any complaints at this time, his lower extremity erythema is improving, there is no fever or chills no headache or dizziness no chest pain no cough no nausea or vomiting no abdominal pain no diarrhea no blood in the stools no burning with urination no frequency or urgency and no hematuria On 07/12/2020 patient is alert and oriented 3. Patient is very eager to go home. Patient reports his leg is significantly improving some redness noted to left lower extremity currently wrapped with Silvadene cream. Discussed case with infectious disease team okay for discharge on Keflex for 10 days. Cardiac meds also adjusted per cardiology discussed with cardiology nurse practitioner patient will be discharged home on Lopressor verapamil and Lasix, atenolol DC'd. These medications were verified with cardiology team. Patient will follow-up outpatient with his deputy sheriff/investigator for further management. CBC and CMP ordered for outpatient monitoring of electrolytes and white blood cell count. Heart rate and blood pressure within normal limits. Patient has been on his Route over the past few days with no further nosebleed. Patient was evaluated by ENT during hospitalization no further inpatient At the time patient denies chest pain or shortness of breath. Patient denies nausea vomiting or diarrhea. Patient denies any urinary burning or frequency. I performed an examination of the patient and discussed their management with the Nurse Practitioner. I have reviewed the Nurse Practitioner's notes and agree with the documented findings and plan of care Patient Condition at Discharge: Stable Plan - Discharge Summary Discharge Rx Participant: Yes New Discharge Prescriptions: New Oxymetazoline 0.05% Nasl [place] [Afrin 0.05% Nasal [place]] 2 spray NASAL TID #1 bottle Aspirin 81 mg PO DAILY 30 Days #30 chew Verapamil [Isoptin] 80 mg PO TID 30 Days #90 tab Cephalexin [Keflex] 500 mg PO Q6HR 10 Days #40 cap Furosemide [Lasix] 40 mg PO BID@0900,1600 30 Days #60 tab Metoprolol Tartrate [Lopressor] 50 mg PO BID 30 Days #60 tab SILVER sulfADIAZINE CREAM [Silvadene Cream] 1 applic TOPICAL DAILY #1 tube Continue Rivaroxaban [Xarelto] 20 mg PO DAILY@1999 Multivitamin [Men's Multi-Vitamin] 1 tab PO DAILY@1999 Digoxin [Lanoxin] 250 mcg PO DAILY@1999 Tamsulosin [Flomax] 0.8 mg PO DAILY@1999 Finasteride [Proscar] 5 mg PO DAILY@1999 Discontinued atenoloL [Tenormin] 25 mg PO DAILY@1999 Discharge Medication List Digoxin [Lanoxin] 250 mcg PO DAILY@199902/17/14 [History] Multivitamin [Men's Multi-Vitamin] 1 tab PO DAILY@199902/17/14 [History] Rivaroxaban [Xarelto] 20 mg PO DAILY@199902/17/14 [History] Tamsulosin [Flomax] 0.8 mg PO DAILY@199902/17/14 [History] Finasteride [Proscar] 5 mg PO DAILY@199907/27/18 [History] Aspirin 81 mg PO DAILY 30 Days #30 chew 07/12/20 [Rx] Cephalexin [Keflex] 500 mg PO Q6HR 10 Days #40 cap 07/12/20 [Rx] Furosemide [Lasix] 40 mg PO BID@0900,1600 30 Days #60 tab 07/12/20 [Rx] Metoprolol Tartrate [Lopressor] 50 mg PO BID 30 Days #60 tab 07/12/20 [Rx] Oxymetazoline 0.05% Nasl [place] [Afrin 0.05% Nasal [place]] 2 spray NASAL TID #1 bottle 07/12/20 [Rx] SILVER sulfADIAZINE CREAM [Silvadene Cream] 1 applic TOPICAL DAILY #1 tube 07/12/20 [Rx] Verapamil [Isoptin] 80 mg PO TID 30 Days #90 tab 07/12/20 [Rx] Follow up Appointment(s)/Referral(s): Shruti Kurtz MD [Primary Care Provider] - 1-2 days Drew Howell MD [STAFF PHYSICIAN] - 1 Week Ambulatory/Diagnostic Orders: Complete Blood Count w/diff [LAB.AMB] Location: None Selected Comprehensive Metabolic Panel [LAB.AMB] Location: None Selected Activity/Diet/Wound Care/Special Instructions: per Dr Lomeli- patient is ok to resume Xarelto 07/11/20 and should continue to use Afrin nasal spray twice daily till friday07/14/20 Patient to follow-up with his deputy sheriff/investigator
--- NOTE | 2020-07-12 15:28 | PN ---
PROGRESS NOTE DATE OF SERVICE: 07/12/2020 REASON FOR FOLLOWUP: Left leg cellulitis. INTERVAL HISTORY: The patient is currently afebrile. The patient is breathing comfortably. the patient denies having any chest pain or any cough. No nausea, no vomiting. No abdominal pain or pain to the lower extremity. PHYSICAL EXAMINATION: Blood pressure is 104/68 with a pulse of 97, temperature 98, he is 95% on room air. General description is an elderly male, lying in bed in no distress. RESPIRATORY SYSTEM: Unlabored breathing, clear to auscultation anteriorly. HEART: S1, S2. Regular rate and rhythm. ABDOMEN: Soft, no tenderness. Left leg swelling has decreased. LABS: Hemoglobin is 31, white count of 13.1, creatinine is 0.65. IMPRESSION/PLAN: Acute left lower extremity cellulitis in this patient overall clinical improvement on cefazolin with oral Keflex 500 mg p.o. q.6 hours for 2 weeks and close outpatient followup. Discussed with the nurse practitioner for admitting team. MMESTRELLITA / KRISTELN: [id number] /
--- NOTE | 2020-07-14 07:22 | CDI ---
Documentation Clarification Form Date: 07/14/2020 06:14:00 AM From: Becki Dumont Phone: If you have a question about this query, please contact Avani Villafana [employer] at [phone] between 8am and 5pm. Admit Date: 07/09/2020 03:16:00 PM Patient Name: Jaya Simons Visit Number: [id number] Discharge Date: 07/12/2020 03:56:00 PM ATTENTION: The Clinical Documentation Specialists (CDI) and [facility] Coding Staff appreciate your assistance in clarifying documentation. Please respond to the clarification below the line at the bottom and electronically sign. The CDI & [facility] Coding staff will review the response and follow-up if needed. Please note: Queries are made part of the Legal Health Record. If you have any questions, please contact the author of this message via ITS. Dr. Shavon Fitch The patient presented with left LE cellulitis. Per ID consult, documentation of possible sepsis. Sepsis not carried through chart. Please clarify if patient had sepsis or was this ruled out. History/Risk Factors: cellulitis Clinical Indicators: WBC [id number] Vitals signs on admission: 99.2, 102 bpm, 22, 118/71, 99 RA Treatment: Cefazolin, DC'd on Keflex ID Consult: possible sepsis In your professional opinion, please clarify if patient had sepsis or was it ruled out. Condition Sepsis ruled out SIRS, without underlying infectious process Sepsis Severe Sepsis Septic Shock Other, please specify Unable to determine Present on Admission Yes No SIRS Criteria (2 or more of the following may indicate SIRS): -Temperature < 96.8F (36C) or > 101.0F (38.3C) -Heart Rate > 90 bpm -Respiratory Rate > 20 breaths/min or PaCO2 < 32 mmHg -White Blood Cell Count > 12,000 or < 4,000 cells/mm3 or > 10% bands -Lactate >2.0 mmol/L (>4.0 is equivalent to septic shock) sepsis ruled out MTDD
== END 2020-07-12 15:56 | disposition home or self-care (01) | DRG 602 ==
LOC: EC 03:10 → 3SCARD 03:40 → OBSVTOIN 07-09 15:16
PROVIDERS: ADMIT Internal Medicine; ATTEND Internal Medicine
DX: L03.116 Cellulitis of left lower limb (principal); I50.33 Acute on chronic diastolic (congestive) heart failure; Z68.41 Body mass index [BMI] 40.0-44.9, adult; I48.19 Other persistent atrial fibrillation; I11.0 Hypertensive heart disease with heart failure; I25.2 Old myocardial infarction; N40.0 Benign prostatic hyperplasia without lower urinary tract symptoms; R04.0 Epistaxis; Z20.828 Contact with and (suspected) exposure to other viral communicable diseases; G47.33 Obstructive sleep apnea (adult) (pediatric); Z99.89 Dependence on other enabling machines and devices; Z90.89 Acquired absence of other organs; E66.01 Morbid (severe) obesity due to excess calories; E78.5 Hyperlipidemia, unspecified; I25.10 Atherosclerotic heart disease of native coronary artery without angina pectoris; Z79.01 Long term (current) use of anticoagulants; Z79.899 Other long term (current) drug therapy; Z80.1 Family history of malignant neoplasm of trachea, bronchus and lung; Z86.010 Personal history of colon polyps; Z87.440 Personal history of urinary (tract) infections; Z87.891 Personal history of nicotine dependence; Z80.49 Family history of malignant neoplasm of other genital organs; R79.89 Other specified abnormal findings of blood chemistry; I73.9 Peripheral vascular disease, unspecified; B95.5 Unspecified streptococcus as the cause of diseases classified elsewhere
CPT/HCPCS: 71046; 80048; 80053; 80061; 83735; 83880; 84484; 85025; 85379; 87040; 93306; 94640; 96365; 99284